=== PATIENT | female | born 1960 | race Caucasian/White ===

== ENCOUNTER 2018-04-24 13:53 | Inpatient (IN) ==
[2018-04-24 16:20] LABS: BASOPHILS # (AUTO) 0.1 X10^3/uL (0.0-0.1); BASOPHILS % (AUTO) 1.1 % (0.2-1.0); EOSINOPHILS # (AUTO) 0.4 x10^3/uL (0.0-0.2); EOSINOPHILS % (AUTO) 3.9 % (0.9-2.9); HEMATOCRIT 37.8 % (36.0-47.0); HEMOGLOBIN 12.8 g/dL (12.0-16.0); LYMPHOCYTES # (AUTO) 3.4 X10^3/uL (1.3-2.9); MEAN CORPUSCULAR HEMOGLOBIN 29.7 pg (27.0-34.0); MEAN CORPUSCULAR HGB CONC 33.8 g/dL (33.0-35.0); MEAN CORPUSCULAR VOLUME 87.8 fL (80.0-100.0); MEAN PLATELET VOLUME 9.3 fL (7.4-11.0); MONOCYTES # (AUTO) 0.8 x10^3/uL (0.3-0.8); MONOCYTES % (AUTO) 8.4 % (0.0-13.0); NEUTROPHILS # (AUTO) 5.3 x10^3/uL (2.2-4.8); NEUTROPHILS % (AUTO) 52.6 % (42.0-75.0); PLATELET COUNT 200 X10^3/uL (150.0-450.0); RED CELL DISTRIBUTION WIDTH 15.3 % (11.6-16.5); WHITE BLOOD COUNT 10.1 X10^3/uL (3.6-10.0)
[2018-04-24] MEDS: FORTAZ or TAZICEF VIAL INJ IVP SCH ×2 (16:24→21:00)
[2018-04-24 16:27] LABS: ALANINE AMINOTRANSFERASE 18 Units/L (12-78); ALBUMIN 3.3 g/dL (3.4-5.0); ALKALINE PHOSPHATASE 71 Units/L (46-116); ASPARTATE AMINO TRANSFERASE 12 Units/L (15-37); BLOOD UREA NITROGEN 15 mg/dL (7-18); CALCIUM 8.8 mg/dL (8.5-10.1); CARBON DIOXIDE 21.9 mmol/L (21-32); CHLORIDE 103 mmol/L (98-107); COR CA(FOR HYPOALB) 9.4 mg/dL (8.5-10.1); CREATININE 1.15 mg/dL (0.55-1.02); SODIUM 137 mmol/L (136-145); eGFR NON BLACK RACES 52 (>60)
[2018-04-24] MEDS: DIFLUCAN 200 MG IV PREMIX* 200 MG/100 ML BAG IV SCH (16:29)
[2018-04-24] MEDS: NS 1000 ML 1,000 ML IV SCH (16:30)
--- NOTE | 2018-04-24 18:53 | DR.UPDATE ---
H&P Update History and Physical Update: WAS SEEN IN THE OFFICE TODAY. SHE WAS ADMITTED FOR TREATMENT OF CELLULITIS TO THE LOWER ABDOMEN/GROIN WELL TINEA CORPORIS AND TINEA CRURIS. A H&P WAS COMPLETED PRIOR TO ADMISSION. SHE WAS STARTED ON IV FORTAZ, IV DIFLUCAN, AND NYSTATIN POWDER. OTHERWISE, NO CHANGES NOTED TO H&P. Changes noted: NO Yes with the following:
[2018-04-24] MEDS ORDERED: PROMETHAZINE HCL 25 MG PO PRN (18:54)
[2018-04-24] MEDS ORDERED: DILTIAZEM HCL PO SCH (19:00)
[2018-04-24] MEDS ORDERED: CITALOPRAM HYDROBROMIDE 20 MG PO SCH (19:00)
[2018-04-24] MEDS ORDERED: ASPIRIN EC 81 MG PO SCH (19:00)
[2018-04-24] MEDS ORDERED: XANAX ONE (19:52)
[2018-04-24] MEDS: ZOCOR TAB 10 MG PO SCH (20:04)
[2018-04-24] MEDS: NEURONTIN CAP 300 MG PO SCH (20:04)
[2018-04-24] MEDS: NexIUM PO SCH (20:04)
[2018-04-24] MEDS: NYSTATIN POWDER TOP SCH (20:06)
[2018-04-24] MEDS: NORCO 10/325 TAB PO PRN (20:07)
[2018-04-24] MEDS ORDERED: PATIENT'S HOME MEDICATION (Esomeprazole Magnesium [Nexium 40mg Cap] 40 MG) PO SCH (21:00)
[2018-04-24] MEDS ORDERED: BENICAR TAB 40 MG PO SCH (21:00)
[2018-04-24] MEDS: XANAX PO SCH (21:01)
[2018-04-24] MEDS: BENADRYL CAP/TAB 25 MG PO PRN (22:53)
[2018-04-24] MEDS: PHENERGAN TAB 25 MG PO PRN (22:53)
[2018-04-25] MEDS: NS 1000 ML 1,000 ML IV SCH ×2 (03:46→18:20)
[2018-04-25] MEDS: NORCO 10/325 TAB PO PRN ×3 (03:46→22:00)
[2018-04-25] MEDS: FORTAZ or TAZICEF VIAL INJ IVP SCH ×3 (05:10→21:38)
[2018-04-25] MEDS: XANAX PO SCH ×3 (05:10→21:37)
[2018-04-25 06:19] LABS: BASOPHILS # (AUTO) 0.1 X10^3/uL (0.0-0.1); EOSINOPHILS # (AUTO) 0.5 x10^3/uL (0.0-0.2); EOSINOPHILS % (AUTO) 5.4 % (0.9-2.9); HEMATOCRIT 34.3 % (36.0-47.0); HEMOGLOBIN 11.7 g/dL (12.0-16.0); LYMPHOCYTES # (AUTO) 2.9 X10^3/uL (1.3-2.9); LYMPHOCYTES % (AUTO) 34.1 % (21.0-51.0); MEAN CORPUSCULAR HEMOGLOBIN 29.7 pg (27.0-34.0); MEAN CORPUSCULAR HGB CONC 34.1 g/dL (33.0-35.0); MEAN CORPUSCULAR VOLUME 87.2 fL (80.0-100.0); MEAN PLATELET VOLUME 9.7 fL (7.4-11.0); MONOCYTES # (AUTO) 0.6 x10^3/uL (0.3-0.8); MONOCYTES % (AUTO) 7.4 % (0.0-13.0); NEUTROPHILS # (AUTO) 4.4 x10^3/uL (2.2-4.8); NEUTROPHILS % (AUTO) 52.1 % (42.0-75.0); PLATELET COUNT 190 X10^3/uL (150.0-450.0); RED BLOOD COUNT 3.94 X10^6/uL (3.5-5.4); RED CELL DISTRIBUTION WIDTH 14.9 % (11.6-16.5); WHITE BLOOD COUNT 8.5 X10^3/uL (3.6-10.0)
[2018-04-25 06:36] LABS: ALANINE AMINOTRANSFERASE 15 Units/L (12-78); ALBUMIN 2.8 g/dL (3.4-5.0); ALKALINE PHOSPHATASE 70 Units/L (46-116); ASPARTATE AMINO TRANSFERASE 12 Units/L (15-37); BLOOD UREA NITROGEN 15 mg/dL (7-18); CALCIUM 8.3 mg/dL (8.5-10.1); CARBON DIOXIDE 23.6 mmol/L (21-32); CHLORIDE 104 mmol/L (98-107); COR CA(FOR HYPOALB) 9.3 mg/dL (8.5-10.1); COR NA(FOR HYPERGLY) 138 mmol/L (136-145); CREATININE 0.91 mg/dL (0.55-1.02); SODIUM 137 mmol/L (136-145); TOTAL PROTEIN 6.2 g/dL (6.4-8.2); eGFR NON BLACK RACES > 60 (>60)
[2018-04-25 06:50] VITALS: BMI 39.6
[2018-04-25] MEDS: DIFLUCAN 200 MG IV PREMIX* 200 MG/100 ML BAG IV SCH (09:28)
[2018-04-25] MEDS: NEURONTIN CAP 300 MG PO SCH ×4 (09:29→21:38)
[2018-04-25] MEDS: NexIUM PO SCH ×2 (09:29→21:38)
[2018-04-25] MEDS: ASPIRIN EC 81 MG PO SCH (09:29)
[2018-04-25] MEDS: CELEXA PO SCH (09:30)
[2018-04-25] MEDS: NYSTATIN POWDER TOP SCH ×2 (09:30→21:38)
[2018-04-25] MEDS: CARDIZEM SR 120 MG PO SCH (09:32)
[2018-04-25] MEDS: BENADRYL CAP/TAB 25 MG PO PRN ×2 (09:43→21:46)
[2018-04-25] MEDS: ZOCOR TAB 10 MG PO SCH (21:38)
[2018-04-26] MEDS: FORTAZ or TAZICEF VIAL INJ IVP SCH ×3 (05:52→22:02)
[2018-04-26] MEDS: NS 1000 ML 1,000 ML IV SCH ×3 (05:53→22:02)
[2018-04-26] MEDS: XANAX PO SCH ×3 (05:53→22:03)
[2018-04-26 06:20] LABS: BASOPHILS # (AUTO) 0.1 X10^3/uL (0.0-0.1); BASOPHILS % (AUTO) 1.2 % (0.2-1.0); EOSINOPHILS # (AUTO) 0.7 x10^3/uL (0.0-0.2); HEMATOCRIT 35.4 % (36.0-47.0); LYMPHOCYTES # (AUTO) 4.1 X10^3/uL (1.3-2.9); LYMPHOCYTES % (AUTO) 39.9 % (21.0-51.0); MEAN CORPUSCULAR HEMOGLOBIN 29.9 pg (27.0-34.0); MEAN CORPUSCULAR HGB CONC 33.9 g/dL (33.0-35.0); MEAN CORPUSCULAR VOLUME 88.2 fL (80.0-100.0); MEAN PLATELET VOLUME 9.2 fL (7.4-11.0); MONOCYTES # (AUTO) 0.7 x10^3/uL (0.3-0.8); MONOCYTES % (AUTO) 6.9 % (0.0-13.0); NEUTROPHILS # (AUTO) 4.6 x10^3/uL (2.2-4.8); PLATELET COUNT 203 X10^3/uL (150.0-450.0); RED BLOOD COUNT 4.01 X10^6/uL (3.5-5.4); RED CELL DISTRIBUTION WIDTH 14.8 % (11.6-16.5); WHITE BLOOD COUNT 10.3 X10^3/uL (3.6-10.0)
[2018-04-26 06:33] LABS: ALANINE AMINOTRANSFERASE 17 Units/L (12-78); ALBUMIN 2.9 g/dL (3.4-5.0); ALKALINE PHOSPHATASE 81 Units/L (46-116); ASPARTATE AMINO TRANSFERASE 13 Units/L (15-37); BLOOD UREA NITROGEN 11 mg/dL (7-18); CALCIUM 8.3 mg/dL (8.5-10.1); CARBON DIOXIDE 25.9 mmol/L (21-32); CHLORIDE 105 mmol/L (98-107); COR CA(FOR HYPOALB) 9.2 mg/dL (8.5-10.1); CREATININE 0.83 mg/dL (0.55-1.02); SODIUM 137 mmol/L (136-145); TOTAL PROTEIN 6.5 g/dL (6.4-8.2); eGFR NON BLACK RACES > 60 (>60)
[2018-04-26] MEDS: DIFLUCAN 200 MG IV PREMIX* 200 MG/100 ML BAG IV SCH (08:05)
[2018-04-26] MEDS: CELEXA PO SCH (08:05)
[2018-04-26] MEDS: CARDIZEM SR 120 MG PO SCH (08:05)
[2018-04-26] MEDS: ASPIRIN EC 81 MG PO SCH (08:05)
[2018-04-26] MEDS: NEURONTIN CAP 300 MG PO SCH ×4 (08:05→20:30)
[2018-04-26] MEDS: NexIUM PO SCH ×2 (08:05→20:30)
[2018-04-26] MEDS: NYSTATIN POWDER TOP SCH ×2 (08:06→20:27)
[2018-04-26] MEDS: BENADRYL CAP/TAB 25 MG PO PRN ×2 (08:10→20:43)
[2018-04-26] MEDS ORDERED: PHARMACY CONSULT - VANCOMYCIN XX SCH (09:00)
--- NOTE | 2018-04-26 10:06 | PCM.PROG ---
Progress Note - Progress Note for Day of Date of Exam: 04/25/18 - Subjective Subjective: WAS ADMITTED FOR CELLULITIS OF THE LOWER ABDOMEN WELL TINEA CORPORIS AND TINEA CRURIS TO THE ABDOMINAL SKIN FOLDS, GROIN, UPPER THIGHS, AND UNDER BREAST. TODAY, SHE IS ALERT AND ORIENTED, LYING IN BED ON MORNING ROUNDS. SHE CONTINUES WITH PAIN AND ITCHING TO AREA. SHE REPORTS A BURING SENSATION. THERE IS SEROUS DRAINAGE NOTED IN ABOVE MENTIONED AREAS WITH A FOUL ODOR. HER VITALS THIS MORNING ARE 98.2-71-20-92%-89/50. LABS WERE OBTAINED. ABNORMAL LAB VALUES INCLUDE THE FOLLOWING: HGB 11.7, HCT 34.3, GLUCOSE 127, CALCIUM 8.3, AST 12, TOTAL PROTEIN 6.2, ALBUMIN 2.8. WOUND CULTURES AND BLOOD CULTURES ARE PENDING. SHE IS CURRENTLY RECEIVING DIFLUCAN 200MG IV DAILY AND FORTAZ 1GM IV Q8H. WE WILL CONTINUE WITH CURRENT PLAN OF CARE AND RESUME HOME MEDICATIONS TODAY. OTHERWISE, WE WILL FOLLOW UP WITH AM LABS AND CONTINUE TO MONITOR PATIENT. - Past Medical Family Social History Past Med/Fam/Surg Hx: No changes since H&P Allergies: Allergies chlordiazepoxide Allergy (Verified 04/24/18 19:34) ciprofloxacin [From Cipro] Allergy (Verified 04/24/18 19:34) dicyclomine [From Bentyl] Allergy (Verified 04/24/18 19:34) pantoprazole [From Protonix] Allergy (Verified 04/24/18 19:34) Penicillins Allergy (Verified 04/24/18 19:34) ranitidine Allergy (Verified 04/24/18 19:34) tramadol Allergy (Verified 04/24/18 19:34) - Review of Systems ROS: No change since H&P - Vital Signs and I&O's Vital Signs: Temperature 98.0 F Pulse Rate [Right Brachial] 60 Respiratory Rate 18 Blood Pressure [Left Arm] 95/51 Blood Pressure [Right Arm] 119/59 Blood Pressure 123/83 O2 Sat by Pulse Oximetry 96 Intake and Output: Intake & Output 04/23/18 04/24/18 04/25/18 04/26/18 11:59 11:59 11:59 11:59 Intake Total 1430 / 1430 960 / 960 Balance 1430 / 1430 960 / 960 - Physical Exam Oriented: Normal Eyes: Normal Ear: Normal Nose: Normal Throat: Normal Respiratory: Generalized, Diminished Cardiovascular: Normal : Normal Auscultation: Bowel Sounds: Normal Palpation: Normal Tenderness: Normal Skin: Rash, Red, Tender, Wound Musculoskeletal: Normal Psychiatric: Normal Mood Description: Calm Affect: Normal Speech Pattern: Clear, Appropriate - Laboratory and Diagnostics Result Diagrams: 04/26/18 06:03 04/26/18 06:03 Labs: 04/24/18 16:18 Abdomen Gram Stain - Final 04/24/18 16:18 Abdomen Wound Culture - Preliminary Laboratory WBC 10.3 X10^3/uL (3.6-10.0) H 04/26/18 06:03 RBC 4.01 X10^6/uL (3.5-5.4) 04/26/18 06:03 Hgb 12.0 g/dL (12.0-16.0) 04/26/18 06:03 Hct 35.4 % (36.0-47.0) L 04/26/18 06:03 MCV 88.2 fL (80.0-100.0) 04/26/18 06:03 MCH 29.9 pg (27.0-34.0) 04/26/18 06:03 MCHC 33.9 g/dL (33.0-35.0) 04/26/18 06:03 RDW 14.8 % (11.6-16.5) 04/26/18 06:03 Plt Count 203 X10^3/uL (150.0-450.0) 04/26/18 06:03 MPV 9.2 fL (7.4-11.0) 04/26/18 06:03 Neut % (Auto) 45.0 % (42.0-75.0) 04/26/18 06:03 Lymph % (Auto) 39.9 % (21.0-51.0) 04/26/18 06:03 [place] % (Auto) 6.9 % (0.0-13.0) 04/26/18 06:03 Eos % (Auto) 7.0 % (0.9-2.9) H 04/26/18 06:03 Baso % (Auto) 1.2 % (0.2-1.0) H 04/26/18 06:03 Neut # (Auto) 4.6 x10^3/uL (2.2-4.8) 04/26/18 06:03 Lymph # (Auto) 4.1 X10^3/uL (1.3-2.9) H 04/26/18 06:03 [place] # (Auto) 0.7 x10^3/uL (0.3-0.8) 04/26/18 06:03 Eos # (Auto) 0.7 x10^3/uL (0.0-0.2) H 04/26/18 06:03 Baso # (Auto) 0.1 X10^3/uL (0.0-0.1) 04/26/18 06:03 Absolute Nucleated RBC 0.1 /100WBC 04/26/18 06:03 Sodium 137 mmol/L (136-145) 04/26/18 06:03 Corrected Sodium TNP 04/26/18 06:03 Potassium 4.0 mmol/L (3.5-5.1) 04/26/18 06:03 Chloride 105 mmol/L (98-107) 04/26/18 06:03 Carbon Dioxide 25.9 mmol/L (21-32) 04/26/18 06:03 BUN 11 mg/dL (7-18) 04/26/18 06:03 Creatinine 0.83 mg/dL (0.55-1.02) 04/26/18 06:03 Est GFR (MDRD) Af Amer > 60 (>60) 04/26/18 06:03 Est GFR (MDRD) Non-Af > 60 (>60) 04/26/18 06:03 Glucose 108 mg/dL (65-99) H 04/26/18 06:03 Calcium 8.3 mg/dL (8.5-10.1) L 04/26/18 06:03 Corrected Calcium 9.2 mg/dL (8.5-10.1) 04/26/18 06:03 Total Bilirubin 0.20 mg/dL (0.2-1.0) 04/26/18 06:03 AST 13 Units/L (15-37) L 04/26/18 06:03 ALT 17 Units/L (12-78) 04/26/18 06:03 Alkaline Phosphatase 81 Units/L (46-116) 04/26/18 06:03 Total Protein 6.5 g/dL (6.4-8.2) 04/26/18 06:03 Albumin 2.9 g/dL (3.4-5.0) L 04/26/18 06:03 Globulin 3.6 g/dL (2.5-4.5) 04/26/18 06:03 Albumin/Globulin Ratio 0.8 Ratio (1.1-2.1) L 04/26/18 06:03 - Plan (1) Abdominal wall cellulitis Status: Acute Plan: CONTINUE IV FORTAZ, WOUND CULTURES, BLOOD CULTURES, CONTINUE TO MONITOR (2) Tinea corporis Status: Acute Plan: IV DIFLUCAN, NYSTATIN POWDER, CONTINUE TO MONITOR (3) Tinea cruris Status: Acute Plan: IV DIFLUCAN, NYSTATIN POWDER, CONTINUE TO MONITOR
[2018-04-26] MEDS: VANCOMYCIN 1 GRAM PREMIX (ADDVANTAGE) 250 ML IV SCH ×2 (11:06→20:43)
[2018-04-26] MEDS: NORCO 10/325 TAB PO PRN ×2 (11:18→23:40)
[2018-04-26] MEDS: ZOCOR TAB 10 MG PO SCH (20:43)
[2018-04-27] MEDS: NS 1000 ML 1,000 ML IV SCH ×4 (02:07→23:20)
[2018-04-27] MEDS: FORTAZ or TAZICEF VIAL INJ IVP SCH ×3 (05:50→21:03)
[2018-04-27] MEDS: XANAX PO SCH ×3 (06:29→21:10)
[2018-04-27 06:36] LABS: BASOPHILS # (AUTO) 0.1 X10^3/uL (0.0-0.1); BASOPHILS % (AUTO) 0.8 % (0.2-1.0); EOSINOPHILS # (AUTO) 0.7 x10^3/uL (0.0-0.2); EOSINOPHILS % (AUTO) 9.4 % (0.9-2.9); HEMATOCRIT 32.4 % (36.0-47.0); HEMOGLOBIN 10.9 g/dL (12.0-16.0); LYMPHOCYTES # (AUTO) 2.7 X10^3/uL (1.3-2.9); LYMPHOCYTES % (AUTO) 37.7 % (21.0-51.0); MEAN CORPUSCULAR HEMOGLOBIN 29.7 pg (27.0-34.0); MEAN CORPUSCULAR HGB CONC 33.8 g/dL (33.0-35.0); MEAN CORPUSCULAR VOLUME 88.1 fL (80.0-100.0); MEAN PLATELET VOLUME 9.4 fL (7.4-11.0); MONOCYTES # (AUTO) 0.6 x10^3/uL (0.3-0.8); MONOCYTES % (AUTO) 7.7 % (0.0-13.0); NEUTROPHILS # (AUTO) 3.2 x10^3/uL (2.2-4.8); NEUTROPHILS % (AUTO) 44.4 % (42.0-75.0); PLATELET COUNT 191 X10^3/uL (150.0-450.0); RED BLOOD COUNT 3.68 X10^6/uL (3.5-5.4); RED CELL DISTRIBUTION WIDTH 14.8 % (11.6-16.5); WHITE BLOOD COUNT 7.2 X10^3/uL (3.6-10.0)
[2018-04-27 06:41] LABS: ALANINE AMINOTRANSFERASE 16 Units/L (12-78); ALBUMIN 2.5 g/dL (3.4-5.0); ALKALINE PHOSPHATASE 86 Units/L (46-116); ASPARTATE AMINO TRANSFERASE 13 Units/L (15-37); BLOOD UREA NITROGEN 9 mg/dL (7-18); CALCIUM 7.7 mg/dL (8.5-10.1); CARBON DIOXIDE 24.9 mmol/L (21-32); CHLORIDE 107 mmol/L (98-107); COR CA(FOR HYPOALB) 8.9 mg/dL (8.5-10.1); CREATININE 0.83 mg/dL (0.55-1.02); SODIUM 141 mmol/L (136-145); TOTAL PROTEIN 5.9 g/dL (6.4-8.2); eGFR NON BLACK RACES > 60 (>60)
[2018-04-27] MEDS: NORCO 10/325 TAB PO PRN ×2 (08:48→22:30)
[2018-04-27] MEDS: NexIUM PO SCH ×2 (08:48→21:03)
[2018-04-27] MEDS: DIFLUCAN 200 MG IV PREMIX* 200 MG/100 ML BAG IV SCH (08:48)
[2018-04-27] MEDS: VANCOMYCIN 1 GRAM PREMIX (ADDVANTAGE) 250 ML IV SCH ×2 (08:48→21:01)
[2018-04-27] MEDS: NEURONTIN CAP 300 MG PO SCH ×4 (08:48→21:03)
[2018-04-27] MEDS: NYSTATIN POWDER TOP SCH ×2 (08:48→21:03)
[2018-04-27] MEDS: ASPIRIN EC 81 MG PO SCH (08:49)
[2018-04-27] MEDS: CARDIZEM SR 120 MG PO SCH (08:49)
[2018-04-27] MEDS: BENADRYL CAP/TAB 25 MG PO PRN ×2 (08:49→22:30)
[2018-04-27] MEDS: CELEXA PO SCH (08:49)
--- NOTE | 2018-04-27 09:52 | PCM.PROG ---
Progress Note - Progress Note for Day of Date of Exam: 04/26/18 - Subjective Subjective: WAS ADMITTED FOR CELLULITIS OF THE LOWER ABDOMEN WELL TINEA CORPORIS AND TINEA CRURIS TO THE ABDOMINAL SKIN FOLDS, GROIN, UPPER THIGHS, AND UNDER BREAST. TODAY, SHE IS ALERT AND ORIENTED, LYING IN BED ON MORNING ROUNDS. SHE CONTINUES WITH PAIN TO ALL AREAS, BUT MOSTLY TO ABDOMEN. THERE IS SEROUS DRAINAGE NOTED IN ABOVE MENTIONED AREAS WITH A FOUL ODOR. HER VITALS THIS MORNING ARE 98.0-60-18-96%-95/51. LABS WERE OBTAINED. ABNORMAL LAB VALUES INCLUDE THE FOLLOWING: WBC 10.3, HCT 35.4, GLUCOSE 108, CALCIUM 8.3, AST 13, ALBUMIN 2.9. BLOOD CULTURES ARE PENDING. WOUND CULTURES OF ABDOMEN REPORT GROWTH GRAM POSITIVE COCCI. SHE IS CURRENTLY RECEIVING DIFLUCAN 200MG IV DAILY AND FORTAZ 1GM IV Q8H. WE WILL ADD VANCOMYCIN 1GM IV Q12H TODAY. OTHERWISE, WE WILL CONTINUE WITH CURRENT PLAN OF CARE TODAY. WE WILL FOLLOW UP WITH AM LABS AND CONTINUE TO MONITOR PATIENT. - Past Medical Family Social History Past Med/Fam/Surg Hx: No changes since H&P Allergies: Allergies chlordiazepoxide Allergy (Verified 04/24/18 19:34) ciprofloxacin [From Cipro] Allergy (Verified 04/24/18 19:34) dicyclomine [From Bentyl] Allergy (Verified 04/24/18 19:34) pantoprazole [From Protonix] Allergy (Verified 04/24/18 19:34) Penicillins Allergy (Verified 04/24/18 19:34) ranitidine Allergy (Verified 04/24/18 19:34) tramadol Allergy (Verified 04/24/18 19:34) - Review of Systems ROS: No change since H&P - Vital Signs and I&O's Vital Signs: Temperature 98.3 F Pulse Rate [Right Brachial] 71 Respiratory Rate 20 Blood Pressure [Left Arm] 132/76 Blood Pressure [Right Arm] 119/59 Blood Pressure 123/83 O2 Sat by Pulse Oximetry 96 Intake and Output: Intake & Output 04/24/18 04/25/18 04/26/18 04/27/18 11:59 11:59 11:59 11:59 Intake Total 1430 / 1430 960 / 960 960 / 960 Balance 1430 / 1430 960 / 960 960 / 960 - Physical Exam Oriented: Normal Eyes: Normal Ear: Normal Nose: Normal Throat: Normal Respiratory: Generalized, Diminished Cardiovascular: Normal : Normal Auscultation: Bowel Sounds: Normal Palpation: Normal Tenderness: Normal Skin: Rash, Red, Tender, Wound Musculoskeletal: Normal Psychiatric: Normal Mood Description: Calm Affect: Normal Speech Pattern: Clear, Appropriate - Laboratory and Diagnostics Result Diagrams: 04/27/18 05:38 04/27/18 05:38 Labs: 04/24/18 16:18 Abdomen Gram Stain - Final 04/24/18 16:18 Abdomen Wound Culture - Final Methicillin Resis Staph Aureus 04/24/18 15:56 Blood Blood Culture - Preliminary 04/24/18 16:03 Blood Blood Culture - Preliminary Laboratory WBC 7.2 X10^3/uL (3.6-10.0) 04/27/18 05:38 RBC 3.68 X10^6/uL (3.5-5.4) 04/27/18 05:38 Hgb 10.9 g/dL (12.0-16.0) L 04/27/18 05:38 Hct 32.4 % (36.0-47.0) L 04/27/18 05:38 MCV 88.1 fL (80.0-100.0) 04/27/18 05:38 MCH 29.7 pg (27.0-34.0) 04/27/18 05:38 MCHC 33.8 g/dL (33.0-35.0) 04/27/18 05:38 RDW 14.8 % (11.6-16.5) 04/27/18 05:38 Plt Count 191 X10^3/uL (150.0-450.0) 04/27/18 05:38 MPV 9.4 fL (7.4-11.0) 04/27/18 05:38 Neut % (Auto) 44.4 % (42.0-75.0) 04/27/18 05:38 Lymph % (Auto) 37.7 % (21.0-51.0) 04/27/18 05:38 [place] % (Auto) 7.7 % (0.0-13.0) 04/27/18 05:38 Eos % (Auto) 9.4 % (0.9-2.9) H 04/27/18 05:38 Baso % (Auto) 0.8 % (0.2-1.0) 04/27/18 05:38 Neut # (Auto) 3.2 x10^3/uL (2.2-4.8) 04/27/18 05:38 Lymph # (Auto) 2.7 X10^3/uL (1.3-2.9) 04/27/18 05:38 [place] # (Auto) 0.6 x10^3/uL (0.3-0.8) 04/27/18 05:38 Eos # (Auto) 0.7 x10^3/uL (0.0-0.2) H 04/27/18 05:38 Baso # (Auto) 0.1 X10^3/uL (0.0-0.1) 04/27/18 05:38 Absolute Nucleated RBC 0.0 /100WBC 04/27/18 05:38 Sodium 141 mmol/L (136-145) 04/27/18 05:38 Corrected Sodium TNP 04/27/18 05:38 Potassium 3.9 mmol/L (3.5-5.1) 04/27/18 05:38 Chloride 107 mmol/L (98-107) 04/27/18 05:38 Carbon Dioxide 24.9 mmol/L (21-32) 04/27/18 05:38 BUN 9 mg/dL (7-18) 04/27/18 05:38 Creatinine 0.83 mg/dL (0.55-1.02) 04/27/18 05:38 Est GFR (MDRD) Af Amer > 60 (>60) 04/27/18 05:38 Est GFR (MDRD) Non-Af > 60 (>60) 04/27/18 05:38 Glucose 109 mg/dL (65-99) H 04/27/18 05:38 Calcium 7.7 mg/dL (8.5-10.1) L 04/27/18 05:38 Corrected Calcium 8.9 mg/dL (8.5-10.1) 04/27/18 05:38 Total Bilirubin 0.20 mg/dL (0.2-1.0) 04/27/18 05:38 AST 13 Units/L (15-37) L 04/27/18 05:38 ALT 16 Units/L (12-78) 04/27/18 05:38 Alkaline Phosphatase 86 Units/L (46-116) 04/27/18 05:38 Total Protein 5.9 g/dL (6.4-8.2) L 04/27/18 05:38 Albumin 2.5 g/dL (3.4-5.0) L 04/27/18 05:38 Globulin 3.4 g/dL (2.5-4.5) 04/27/18 05:38 Albumin/Globulin Ratio 0.7 Ratio (1.1-2.1) L 04/27/18 05:38 - Plan (1) Abdominal wall cellulitis Status: Acute Plan: VANCOMYCIN 1GM IV Q12H, CONTINUE IV FORTAZ, WOUND CULTURES, BLOOD CULTURES, CONTINUE TO MONITOR (2) Tinea corporis Status: Acute Plan: IV DIFLUCAN, NYSTATIN POWDER, CONTINUE TO MONITOR (3) Tinea cruris Status: Acute Plan: IV DIFLUCAN, NYSTATIN POWDER, CONTINUE TO MONITOR
[2018-04-27] MEDS ORDERED: CONSULT PHARMACY - GENTAMICIN XX SCH (12:00)
[2018-04-27] MEDS: GENTAMICIN TOPICAL CRM TOP SCH ×2 (12:25→21:03)
[2018-04-27] MEDS: COLACE CAP 100 MG PO SCH ×2 (13:29→21:03)
[2018-04-27] MEDS: MILK OF MAGNESIA PO SCH ×2 (13:29→21:03)
[2018-04-27] MEDS ORDERED: PHARMACY COMMENT IV NR (20:30)
[2018-04-27 20:41] LABS: CREATININE 0.83 mg/dL (0.55-1.02); VANCOMYCIN,TROUGH 14.1 ug/mL (15-20)
[2018-04-27] MEDS: ZOCOR TAB 10 MG PO SCH (21:10)
[2018-04-27] MEDS: PHENERGAN TAB 25 MG PO PRN (22:30)
[2018-04-28] MEDS: XANAX PO SCH ×3 (06:12→21:13)
[2018-04-28] MEDS: FORTAZ or TAZICEF VIAL INJ IVP SCH ×3 (06:12→21:12)
[2018-04-28 06:38] LABS: BASOPHILS # (AUTO) 0.1 X10^3/uL (0.0-0.1); BASOPHILS % (AUTO) 1.1 % (0.2-1.0); EOSINOPHILS # (AUTO) 0.8 x10^3/uL (0.0-0.2); EOSINOPHILS % (AUTO) 10.4 % (0.9-2.9); HEMATOCRIT 32.1 % (36.0-47.0); LYMPHOCYTES # (AUTO) 2.7 X10^3/uL (1.3-2.9); LYMPHOCYTES % (AUTO) 35.8 % (21.0-51.0); MEAN CORPUSCULAR HEMOGLOBIN 30.1 pg (27.0-34.0); MEAN CORPUSCULAR HGB CONC 34.4 g/dL (33.0-35.0); MEAN CORPUSCULAR VOLUME 87.6 fL (80.0-100.0); MEAN PLATELET VOLUME 9.3 fL (7.4-11.0); MONOCYTES # (AUTO) 0.5 x10^3/uL (0.3-0.8); MONOCYTES % (AUTO) 7.2 % (0.0-13.0); NEUTROPHILS # (AUTO) 3.4 x10^3/uL (2.2-4.8); NEUTROPHILS % (AUTO) 45.5 % (42.0-75.0); PLATELET COUNT 214 X10^3/uL (150.0-450.0); RED BLOOD COUNT 3.66 X10^6/uL (3.5-5.4); RED CELL DISTRIBUTION WIDTH 14.7 % (11.6-16.5); WHITE BLOOD COUNT 7.5 X10^3/uL (3.6-10.0)
[2018-04-28 07:07] LABS: ALANINE AMINOTRANSFERASE 17 Units/L (12-78); ALBUMIN 2.6 g/dL (3.4-5.0); ALKALINE PHOSPHATASE 86 Units/L (46-116); ASPARTATE AMINO TRANSFERASE 14 Units/L (15-37); BLOOD UREA NITROGEN 8 mg/dL (7-18); CALCIUM 7.7 mg/dL (8.5-10.1); CARBON DIOXIDE 28.1 mmol/L (21-32); CHLORIDE 107 mmol/L (98-107); COR CA(FOR HYPOALB) 8.8 mg/dL (8.5-10.1); CREATININE 0.74 mg/dL (0.55-1.02); SODIUM 141 mmol/L (136-145); TOTAL PROTEIN 6.1 g/dL (6.4-8.2); eGFR NON BLACK RACES > 60 (>60)
[2018-04-28] MEDS: VANCOMYCIN 1 GRAM PREMIX (ADDVANTAGE) 250 ML IV SCH ×2 (09:39→20:29)
[2018-04-28] MEDS: NEURONTIN CAP 300 MG PO SCH ×4 (09:40→20:26)
[2018-04-28] MEDS: CARDIZEM SR 120 MG PO SCH (09:40)
[2018-04-28] MEDS: ASPIRIN EC 81 MG PO SCH (09:40)
[2018-04-28] MEDS: MILK OF MAGNESIA PO SCH (09:40)
[2018-04-28] MEDS: CELEXA PO SCH (09:40)
[2018-04-28] MEDS: NYSTATIN POWDER TOP SCH ×2 (09:40→20:30)
[2018-04-28] MEDS: NexIUM PO SCH ×2 (09:40→20:26)
[2018-04-28] MEDS: GENTAMICIN TOPICAL CRM TOP SCH ×2 (09:41→20:28)
[2018-04-28] MEDS ORDERED: NS 250 ML IV 250 ML IV ONE (09:45)
[2018-04-28] MEDS: DIFLUCAN PO SCH (11:53)
[2018-04-28] MEDS: NS 1000 ML 1,000 ML IV SCH (12:44)
[2018-04-28] MEDS ORDERED: MILK OF MAGNESIA PO PRN (18:52)
[2018-04-28] MEDS ORDERED: PROCTOFOAM HC EXT PRN (18:53)
[2018-04-28] MEDS: NORCO 10/325 TAB PO PRN (20:27)
[2018-04-28] MEDS: ZOCOR TAB 10 MG PO SCH (20:27)
[2018-04-28] MEDS: COLACE CAP 100 MG PO SCH (20:29)
[2018-04-28] MEDS ORDERED: PREPARATION H OINT RECTAL PRN (21:12)
[2018-04-28] MEDS: PHENERGAN TAB 25 MG PO PRN (21:12)
[2018-04-28] MEDS: BENADRYL CAP/TAB 25 MG PO PRN (21:15)
[2018-04-29] MEDS: NS 1000 ML 1,000 ML IV SCH ×2 (03:15→07:00)
[2018-04-29] MEDS: XANAX PO SCH ×3 (05:40→22:02)
[2018-04-29] MEDS: FORTAZ or TAZICEF VIAL INJ IVP SCH ×3 (05:40→22:00)
[2018-04-29 06:30] LABS: BASOPHILS % (AUTO) 0.8 % (0.2-1.0); EOSINOPHILS # (AUTO) 0.6 x10^3/uL (0.0-0.2); EOSINOPHILS % (AUTO) 9.2 % (0.9-2.9); HEMATOCRIT 31.3 % (36.0-47.0); HEMOGLOBIN 10.6 g/dL (12.0-16.0); LYMPHOCYTES # (AUTO) 2.2 X10^3/uL (1.3-2.9); LYMPHOCYTES % (AUTO) 35.9 % (21.0-51.0); MEAN CORPUSCULAR HEMOGLOBIN 30.1 pg (27.0-34.0); MEAN CORPUSCULAR VOLUME 88.3 fL (80.0-100.0); MEAN PLATELET VOLUME 8.6 fL (7.4-11.0); MONOCYTES # (AUTO) 0.4 x10^3/uL (0.3-0.8); NEUTROPHILS # (AUTO) 2.9 x10^3/uL (2.2-4.8); NEUTROPHILS % (AUTO) 48.1 % (42.0-75.0); PLATELET COUNT 211 X10^3/uL (150.0-450.0); RED BLOOD COUNT 3.54 X10^6/uL (3.5-5.4); RED CELL DISTRIBUTION WIDTH 14.7 % (11.6-16.5); WHITE BLOOD COUNT 6.1 X10^3/uL (3.6-10.0)
[2018-04-29 06:33] LABS: ALANINE AMINOTRANSFERASE 16 Units/L (12-78); ALBUMIN 2.5 g/dL (3.4-5.0); ALKALINE PHOSPHATASE 62 Units/L (46-116); ASPARTATE AMINO TRANSFERASE 14 Units/L (15-37); BLOOD UREA NITROGEN 7 mg/dL (7-18); CALCIUM 7.8 mg/dL (8.5-10.1); CARBON DIOXIDE 29.1 mmol/L (21-32); CHLORIDE 107 mmol/L (98-107); CREATININE 0.81 mg/dL (0.55-1.02); SODIUM 142 mmol/L (136-145); TOTAL PROTEIN 5.9 g/dL (6.4-8.2); eGFR NON BLACK RACES > 60 (>60)
[2018-04-29 08:06] LABS: CREATININE 0.74 mg/dL (0.55-1.02); VANCOMYCIN,TROUGH 13.9 ug/mL (15-20)
[2018-04-29] MEDS: NYSTATIN POWDER TOP SCH ×2 (08:29→22:03)
[2018-04-29] MEDS: GENTAMICIN TOPICAL CRM TOP SCH ×2 (08:29→22:03)
[2018-04-29] MEDS: CARDIZEM SR 120 MG PO SCH (08:29)
[2018-04-29] MEDS: DIFLUCAN PO SCH (08:29)
[2018-04-29] MEDS: CELEXA PO SCH (08:30)
[2018-04-29] MEDS: ASPIRIN EC 81 MG PO SCH (08:30)
[2018-04-29] MEDS: NEURONTIN CAP 300 MG PO SCH ×4 (08:30→22:00)
[2018-04-29] MEDS: NexIUM PO SCH ×2 (08:30→22:02)
[2018-04-29] MEDS: VANCOMYCIN 1 GRAM PREMIX (ADDVANTAGE) 250 ML IV SCH ×2 (08:31→22:02)
[2018-04-29] MEDS: BENADRYL CAP/TAB 25 MG PO PRN ×2 (08:38→22:01)
[2018-04-29] MEDS: NORCO 10/325 TAB PO PRN ×2 (08:38→22:19)
--- NOTE | 2018-04-29 09:18 | RAD ---
Examination: Portable AP chest History: SOB Comparison 12/17/2015 Findings: Continued normal heart size. Mild central pulmonary vascular congestion without evidence fo r pneumonia, pleural fluid or rocio pulmonary edema. Impression: Interval appearance of pulmonary vascular distention since prior study. No change otherwi se. Reported By:
--- NOTE | 2018-04-29 20:34 | PCM.PROG ---
Progress Note - Progress Note for Day of Date of Exam: 04/27/18 - Subjective Subjective: WAS ADMITTED FOR CELLULITIS OF THE LOWER ABDOMEN WELL TINEA CORPORIS AND TINEA CRURIS TO THE ABDOMINAL SKIN FOLDS, GROIN, UPPER THIGHS, AND UNDER BREAST. TODAY, SHE IS ALERT AND ORIENTED, LYING IN BED ON MORNING ROUNDS. SHE CONTINUES WITH PAIN TO ABDOMEN. THERE IS SEROUS DRAINAGE NOTED IN ABOVE MENTIONED AREAS WITH A FOUL ODOR. HER VITALS THIS MORNING ARE 97.6-70-18-93%-115/70. LABS WERE OBTAINED. ABNORMAL LAB VALUES INCLUDE THE FOLLOWING: HGB 10.9, HCT 32.4, GLUCOSE 109, CALCIUM 7.7, AST 13, TOTAL PROTEIN 5.9, ALBUMIN 2.5. WOUND CULTURES OF ABDOMEN REPORT GROWTH OF MRSA. WE WILL CONTINUE WITH CURRENT PLAN OF CARE TODAY. OTHERWISE, WE WILL FOLLOW UP WITH AM LABS AND CONTINUE TO MONITOR PATIENT. - Past Medical Family Social History Past Med/Fam/Surg Hx: No changes since H&P Allergies: Allergies chlordiazepoxide Allergy (Verified 04/24/18 19:34) ciprofloxacin [From Cipro] Allergy (Verified 04/24/18 19:34) dicyclomine [From Bentyl] Allergy (Verified 04/24/18 19:34) pantoprazole [From Protonix] Allergy (Verified 04/24/18 19:34) Penicillins Allergy (Verified 04/24/18 19:34) ranitidine Allergy (Verified 04/24/18 19:34) tramadol Allergy (Verified 04/24/18 19:34) - Review of Systems ROS: No change since H&P - Vital Signs and I&O's Vital Signs: Temperature 98.0 F Pulse Rate [Right Brachial] 62 Respiratory Rate 18 Blood Pressure [Left Arm] 116/64 Blood Pressure [Right Arm] 119/59 Blood Pressure 123/83 O2 Sat by Pulse Oximetry 92 Intake and Output: Intake & Output 04/27/18 04/28/18 04/29/18 04/30/18 11:59 11:59 11:59 11:59 Intake Total 960 / 960 1670 / 1670 2540 / 2540 950 / 950 Balance 960 / 960 1670 / 1670 2540 / 2540 950 / 950 - Physical Exam Oriented: Normal Eyes: Normal Ear: Normal Nose: Normal Throat: Normal Respiratory: Generalized, Diminished Cardiovascular: Normal : Normal Auscultation: Bowel Sounds: Normal Palpation: Normal Tenderness: Normal Skin: Rash, Red, Tender, Wound Musculoskeletal: Normal Psychiatric: Normal Mood Description: Calm Affect: Normal Speech Pattern: Clear, Appropriate - Laboratory and Diagnostics Result Diagrams: 04/29/18 05:00 04/29/18 07:32 Labs: 04/27/18 08:38 Blood Blood Culture - Preliminary 04/27/18 08:32 Blood Blood Culture - Preliminary 04/24/18 16:03 Blood Blood Culture - Final 04/24/18 16:18 Abdomen Gram Stain - Final 04/24/18 16:18 Abdomen Wound Culture - Final Methicillin Resis Staph Aureus 04/24/18 15:56 Blood Blood Culture - Preliminary Laboratory WBC 6.1 X10^3/uL (3.6-10.0) 04/29/18 05:00 RBC 3.54 X10^6/uL (3.5-5.4) 04/29/18 05:00 Hgb 10.6 g/dL (12.0-16.0) L 04/29/18 05:00 Hct 31.3 % (36.0-47.0) L 04/29/18 05:00 MCV 88.3 fL (80.0-100.0) 04/29/18 05:00 MCH 30.1 pg (27.0-34.0) 04/29/18 05:00 MCHC 34.0 g/dL (33.0-35.0) 04/29/18 05:00 RDW 14.7 % (11.6-16.5) 04/29/18 05:00 Plt Count 211 X10^3/uL (150.0-450.0) 04/29/18 05:00 MPV 8.6 fL (7.4-11.0) 04/29/18 05:00 Neut % (Auto) 48.1 % (42.0-75.0) 04/29/18 05:00 Lymph % (Auto) 35.9 % (21.0-51.0) 04/29/18 05:00 [place] % (Auto) 6.0 % (0.0-13.0) 04/29/18 05:00 Eos % (Auto) 9.2 % (0.9-2.9) H 04/29/18 05:00 Baso % (Auto) 0.8 % (0.2-1.0) 04/29/18 05:00 Neut # (Auto) 2.9 x10^3/uL (2.2-4.8) 04/29/18 05:00 Lymph # (Auto) 2.2 X10^3/uL (1.3-2.9) 04/29/18 05:00 [place] # (Auto) 0.4 x10^3/uL (0.3-0.8) 04/29/18 05:00 Eos # (Auto) 0.6 x10^3/uL (0.0-0.2) H 04/29/18 05:00 Baso # (Auto) 0.0 X10^3/uL (0.0-0.1) 04/29/18 05:00 Absolute Nucleated RBC 0.0 /100WBC 04/29/18 05:00 Sodium 142 mmol/L (136-145) 04/29/18 05:00 Corrected Sodium TNP 04/29/18 05:00 Potassium 3.6 mmol/L (3.5-5.1) 04/29/18 05:00 Chloride 107 mmol/L (98-107) 04/29/18 05:00 Carbon Dioxide 29.1 mmol/L (21-32) 04/29/18 05:00 BUN 7 mg/dL (7-18) 04/29/18 05:00 Creatinine 0.74 mg/dL (0.55-1.02) 04/29/18 07:32 Est GFR (MDRD) Af Amer > 60 (>60) 04/29/18 05:00 Est GFR (MDRD) Non-Af > 60 (>60) 04/29/18 05:00 Glucose 83 mg/dL (65-99) 04/29/18 05:00 Calcium 7.8 mg/dL (8.5-10.1) L 04/29/18 05:00 Corrected Calcium 9.0 mg/dL (8.5-10.1) 04/29/18 05:00 Total Bilirubin 0.20 mg/dL (0.2-1.0) 04/29/18 05:00 AST 14 Units/L (15-37) L 04/29/18 05:00 ALT 16 Units/L (12-78) 04/29/18 05:00 Alkaline Phosphatase 62 Units/L (46-116) 04/29/18 05:00 Total Protein 5.9 g/dL (6.4-8.2) L 04/29/18 05:00 Albumin 2.5 g/dL (3.4-5.0) L 04/29/18 05:00 Globulin 3.4 g/dL (2.5-4.5) 04/29/18 05:00 Albumin/Globulin Ratio 0.7 Ratio (1.1-2.1) L 04/29/18 05:00 Vancomycin Trough 13.9 ug/mL (15-20) L 04/29/18 07:32 - Plan (1) Abdominal wall cellulitis Status: Acute Plan: VANCOMYCIN 1GM IV Q12H, CONTINUE IV FORTAZ, WOUND CULTURES, BLOOD CULTURES, CONTINUE TO MONITOR (2) MRSA (methicillin resistant Staphylococcus aureus) infection Status: Acute Plan: VANCOMYCIN 1GM IV BID, WOUND CARE, CONTINUE TO MONITOR (3) Tinea corporis Status: Acute Plan: IV DIFLUCAN, NYSTATIN POWDER, CONTINUE TO MONITOR (4) Tinea cruris Status: Acute Plan: IV DIFLUCAN, NYSTATIN POWDER, CONTINUE TO MONITOR
--- NOTE | 2018-04-29 21:23 | PCM.PROG ---
Progress Note - Progress Note for Day of Date of Exam: 04/28/18 - Subjective Subjective: WAS ADMITTED FOR CELLULITIS OF THE LOWER ABDOMEN WELL TINEA CORPORIS AND TINEA CRURIS TO THE ABDOMINAL SKIN FOLDS, GROIN, UPPER THIGHS, AND UNDER BREAST. TODAY, SHE IS ALERT AND ORIENTED, LYING IN BED ON MORNING ROUNDS. SHE CONTINUES WITH PAIN TO ABDOMEN, BUT REPORTS IMPOVEMENT SINCE YESTERDAY. SHE CONTINUES WITH SEROUS DRAINAGE NOTED IN ABOVE MENTIONED AREAS WITH A FOUL ODOR. VITALS AND LABS ARE STABLE THIS MORNING. WOUND CULTURES OF ABDOMEN REPORT GROWTH OF MRSA. WE WILL CONTINUE WITH IV ANTIBIOTICS, WOUND CARE, AND CURRENT PLAN OF CARE TODAY. WE WILL ADD GENTAMICIN CREAM TO WOUNDS. OTHERWISE, WE WILL FOLLOW UP WITH AM LABS AND CONTINUE TO MONITOR PATIENT. - Past Medical Family Social History Past Med/Fam/Surg Hx: No changes since H&P Allergies: Allergies chlordiazepoxide Allergy (Verified 04/24/18 19:34) ciprofloxacin [From Cipro] Allergy (Verified 04/24/18 19:34) dicyclomine [From Bentyl] Allergy (Verified 04/24/18 19:34) pantoprazole [From Protonix] Allergy (Verified 04/24/18 19:34) Penicillins Allergy (Verified 04/24/18 19:34) ranitidine Allergy (Verified 04/24/18 19:34) tramadol Allergy (Verified 04/24/18 19:34) - Review of Systems ROS: No change since H&P - Vital Signs and I&O's Vital Signs: Temperature 98.0 F Pulse Rate [Right Brachial] 62 Respiratory Rate 18 Blood Pressure [Left Arm] 116/64 Blood Pressure [Right Arm] 119/59 Blood Pressure 123/83 O2 Sat by Pulse Oximetry 92 Intake and Output: Intake & Output 04/27/18 04/28/18 04/29/18 04/30/18 11:59 11:59 11:59 11:59 Intake Total 960 / 960 1670 / 1670 2540 / 2540 950 / 950 Balance 960 / 960 1670 / 1670 2540 / 2540 950 / 950 - Physical Exam Oriented: Normal Eyes: Normal Ear: Normal Nose: Normal Throat: Normal Respiratory: Generalized, Diminished Cardiovascular: Normal : Normal Auscultation: Bowel Sounds: Normal Palpation: Normal Tenderness: Normal Skin: Rash, Red, Tender, Wound Musculoskeletal: Normal Psychiatric: Normal Mood Description: Calm Affect: Normal Speech Pattern: Clear, Appropriate - Laboratory and Diagnostics Result Diagrams: 04/29/18 05:00 04/29/18 07:32 Labs: 04/27/18 08:38 Blood Blood Culture - Preliminary 04/27/18 08:32 Blood Blood Culture - Preliminary 04/24/18 16:03 Blood Blood Culture - Final 04/24/18 16:18 Abdomen Gram Stain - Final 04/24/18 16:18 Abdomen Wound Culture - Final Methicillin Resis Staph Aureus 04/24/18 15:56 Blood Blood Culture - Preliminary Laboratory WBC 6.1 X10^3/uL (3.6-10.0) 04/29/18 05:00 RBC 3.54 X10^6/uL (3.5-5.4) 04/29/18 05:00 Hgb 10.6 g/dL (12.0-16.0) L 04/29/18 05:00 Hct 31.3 % (36.0-47.0) L 04/29/18 05:00 MCV 88.3 fL (80.0-100.0) 04/29/18 05:00 MCH 30.1 pg (27.0-34.0) 04/29/18 05:00 MCHC 34.0 g/dL (33.0-35.0) 04/29/18 05:00 RDW 14.7 % (11.6-16.5) 04/29/18 05:00 Plt Count 211 X10^3/uL (150.0-450.0) 04/29/18 05:00 MPV 8.6 fL (7.4-11.0) 04/29/18 05:00 Neut % (Auto) 48.1 % (42.0-75.0) 04/29/18 05:00 Lymph % (Auto) 35.9 % (21.0-51.0) 04/29/18 05:00 [place] % (Auto) 6.0 % (0.0-13.0) 04/29/18 05:00 Eos % (Auto) 9.2 % (0.9-2.9) H 04/29/18 05:00 Baso % (Auto) 0.8 % (0.2-1.0) 04/29/18 05:00 Neut # (Auto) 2.9 x10^3/uL (2.2-4.8) 04/29/18 05:00 Lymph # (Auto) 2.2 X10^3/uL (1.3-2.9) 04/29/18 05:00 [place] # (Auto) 0.4 x10^3/uL (0.3-0.8) 04/29/18 05:00 Eos # (Auto) 0.6 x10^3/uL (0.0-0.2) H 04/29/18 05:00 Baso # (Auto) 0.0 X10^3/uL (0.0-0.1) 04/29/18 05:00 Absolute Nucleated RBC 0.0 /100WBC 04/29/18 05:00 Sodium 142 mmol/L (136-145) 04/29/18 05:00 Corrected Sodium TNP 04/29/18 05:00 Potassium 3.6 mmol/L (3.5-5.1) 04/29/18 05:00 Chloride 107 mmol/L (98-107) 04/29/18 05:00 Carbon Dioxide 29.1 mmol/L (21-32) 04/29/18 05:00 BUN 7 mg/dL (7-18) 04/29/18 05:00 Creatinine 0.74 mg/dL (0.55-1.02) 04/29/18 07:32 Est GFR (MDRD) Af Amer > 60 (>60) 04/29/18 05:00 Est GFR (MDRD) Non-Af > 60 (>60) 04/29/18 05:00 Glucose 83 mg/dL (65-99) 04/29/18 05:00 Calcium 7.8 mg/dL (8.5-10.1) L 04/29/18 05:00 Corrected Calcium 9.0 mg/dL (8.5-10.1) 04/29/18 05:00 Total Bilirubin 0.20 mg/dL (0.2-1.0) 04/29/18 05:00 AST 14 Units/L (15-37) L 04/29/18 05:00 ALT 16 Units/L (12-78) 04/29/18 05:00 Alkaline Phosphatase 62 Units/L (46-116) 04/29/18 05:00 Total Protein 5.9 g/dL (6.4-8.2) L 04/29/18 05:00 Albumin 2.5 g/dL (3.4-5.0) L 04/29/18 05:00 Globulin 3.4 g/dL (2.5-4.5) 04/29/18 05:00 Albumin/Globulin Ratio 0.7 Ratio (1.1-2.1) L 04/29/18 05:00 Vancomycin Trough 13.9 ug/mL (15-20) L 04/29/18 07:32 - Plan (1) Abdominal wall cellulitis Status: Acute Plan: VANCOMYCIN 1GM IV Q12H, CONTINUE IV FORTAZ, WOUND CULTURES, BLOOD CULTURES, CONTINUE TO MONITOR (2) MRSA (methicillin resistant Staphylococcus aureus) infection Status: Acute Plan: VANCOMYCIN 1GM IV BID, WOUND CARE, CONTINUE TO MONITOR (3) Tinea corporis Status: Acute Plan: IV DIFLUCAN, NYSTATIN POWDER, CONTINUE TO MONITOR (4) Tinea cruris Status: Acute Plan: IV DIFLUCAN, NYSTATIN POWDER, CONTINUE TO MONITOR
[2018-04-29] MEDS: COLACE CAP 100 MG PO SCH (22:01)
[2018-04-29] MEDS: PHENERGAN TAB 25 MG PO PRN (22:02)
[2018-04-29] MEDS: ZOCOR TAB 10 MG PO SCH (22:02)
[2018-04-29] MEDS: DUONEB 0.5 MG/3 MG NEB PRN (22:55)
[2018-04-30] MEDS: FORTAZ or TAZICEF VIAL INJ IVP SCH ×3 (05:57→21:17)
[2018-04-30] MEDS: XANAX PO SCH ×3 (05:57→21:22)
[2018-04-30 06:19] LABS: BASOPHILS # (AUTO) 0.1 X10^3/uL (0.0-0.1); BASOPHILS % (AUTO) 0.8 % (0.2-1.0); EOSINOPHILS # (AUTO) 0.4 x10^3/uL (0.0-0.2); EOSINOPHILS % (AUTO) 6.3 % (0.9-2.9); HEMATOCRIT 30.1 % (36.0-47.0); HEMOGLOBIN 10.4 g/dL (12.0-16.0); LYMPHOCYTES # (AUTO) 2.1 X10^3/uL (1.3-2.9); LYMPHOCYTES % (AUTO) 29.2 % (21.0-51.0); MEAN CORPUSCULAR HGB CONC 34.4 g/dL (33.0-35.0); MEAN CORPUSCULAR VOLUME 87.1 fL (80.0-100.0); MEAN PLATELET VOLUME 8.7 fL (7.4-11.0); MONOCYTES # (AUTO) 0.4 x10^3/uL (0.3-0.8); MONOCYTES % (AUTO) 6.4 % (0.0-13.0); NEUTROPHILS % (AUTO) 57.3 % (42.0-75.0); PLATELET COUNT 203 X10^3/uL (150.0-450.0); RED BLOOD COUNT 3.46 X10^6/uL (3.5-5.4); RED CELL DISTRIBUTION WIDTH 14.7 % (11.6-16.5)
[2018-04-30 06:39] LABS: ALANINE AMINOTRANSFERASE 20 Units/L (12-78); ALBUMIN 2.6 g/dL (3.4-5.0); ALKALINE PHOSPHATASE 60 Units/L (46-116); ASPARTATE AMINO TRANSFERASE 16 Units/L (15-37); BLOOD UREA NITROGEN 6 mg/dL (7-18); CALCIUM 7.8 mg/dL (8.5-10.1); CARBON DIOXIDE 26.8 mmol/L (21-32); CHLORIDE 105 mmol/L (98-107); COR CA(FOR HYPOALB) 8.9 mg/dL (8.5-10.1); CREATININE 0.81 mg/dL (0.55-1.02); SODIUM 141 mmol/L (136-145); TOTAL PROTEIN 6.1 g/dL (6.4-8.2); eGFR NON BLACK RACES > 60 (>60)
[2018-04-30] MEDS ORDERED: MICRO K EXTEN CAP 10 MEQ PO PRN (06:47)
[2018-04-30] MEDS ORDERED: K-RIDER 10 MEQ/NS 100 ML 10 MEQ/100 ML BAG IV PRN (06:47)
[2018-04-30] MEDS ORDERED: MAGNESIUM SULFATE 1 GRAM/100 mL PREMIX 1 GM/100 ML BAG IV PRN (06:47)
[2018-04-30] MEDS ORDERED: POTASSIUM CHLORIDE LIQ 20 MEQ UDC PO PRN (06:47)
[2018-04-30] MEDS ORDERED: POTASSIUM CHL 40 MEQ/NS 0.45% 500 ML IV PRN (06:47)
[2018-04-30] MEDS ORDERED: KLOR-CON PO PRN (06:47)
[2018-04-30] MEDS ORDERED: POTASSIUM CHL 60 MEQ/NS 0.45% 500 ML IV PRN (06:47)
[2018-04-30] MEDS: CARDIZEM SR 120 MG PO SCH (09:23)
[2018-04-30] MEDS: DIFLUCAN PO SCH (09:23)
[2018-04-30] MEDS: ASPIRIN EC 81 MG PO SCH (09:24)
[2018-04-30] MEDS: VANCOMYCIN 1 GRAM PREMIX (ADDVANTAGE) 250 ML IV SCH ×2 (09:24→21:17)
[2018-04-30] MEDS: NexIUM PO SCH ×2 (09:24→21:17)
[2018-04-30] MEDS: CELEXA PO SCH (09:24)
[2018-04-30] MEDS: NEURONTIN CAP 300 MG PO SCH ×4 (09:24→21:16)
[2018-04-30] MEDS: GENTAMICIN TOPICAL CRM TOP SCH ×2 (09:28→21:17)
[2018-04-30] MEDS: NYSTATIN POWDER TOP SCH ×2 (09:29→21:17)
[2018-04-30] MEDS: BENADRYL CAP/TAB 25 MG PO PRN ×2 (09:50→21:22)
[2018-04-30] MEDS: NORCO 10/325 TAB PO PRN ×2 (09:50→21:22)
[2018-04-30] MEDS: DUONEB 0.5 MG/3 MG NEB PRN (17:08)
[2018-04-30 21:03] LABS: CREATININE 0.81 mg/dL (0.55-1.02); VANCOMYCIN,TROUGH 12.8 ug/mL (15-20)
[2018-04-30] MEDS: COLACE CAP 100 MG PO SCH (21:16)
[2018-04-30] MEDS: ZOCOR TAB 10 MG PO SCH (21:17)
[2018-04-30] MEDS: PHENERGAN TAB 25 MG PO PRN (21:22)
[2018-05-01] MEDS: XANAX PO SCH ×3 (06:15→21:34)
[2018-05-01] MEDS: FORTAZ or TAZICEF VIAL INJ IVP SCH ×3 (06:15→21:34)
[2018-05-01 06:24] LABS: BASOPHILS # (AUTO) 0.1 X10^3/uL (0.0-0.1); BASOPHILS % (AUTO) 1.1 % (0.2-1.0); EOSINOPHILS # (AUTO) 0.5 x10^3/uL (0.0-0.2); EOSINOPHILS % (AUTO) 8.9 % (0.9-2.9); HEMATOCRIT 31.5 % (36.0-47.0); HEMOGLOBIN 10.8 g/dL (12.0-16.0); LYMPHOCYTES # (AUTO) 1.7 X10^3/uL (1.3-2.9); LYMPHOCYTES % (AUTO) 31.7 % (21.0-51.0); MEAN CORPUSCULAR HEMOGLOBIN 29.9 pg (27.0-34.0); MEAN CORPUSCULAR HGB CONC 34.3 g/dL (33.0-35.0); MEAN CORPUSCULAR VOLUME 87.2 fL (80.0-100.0); MEAN PLATELET VOLUME 8.3 fL (7.4-11.0); MONOCYTES # (AUTO) 0.4 x10^3/uL (0.3-0.8); MONOCYTES % (AUTO) 7.1 % (0.0-13.0); NEUTROPHILS # (AUTO) 2.8 x10^3/uL (2.2-4.8); NEUTROPHILS % (AUTO) 51.2 % (42.0-75.0); PLATELET COUNT 209 X10^3/uL (150.0-450.0); RED BLOOD COUNT 3.62 X10^6/uL (3.5-5.4); RED CELL DISTRIBUTION WIDTH 14.7 % (11.6-16.5); WHITE BLOOD COUNT 5.4 X10^3/uL (3.6-10.0)
--- NOTE | 2018-05-01 06:33 | RAD ---
HISTORY: Shortness of breath Study: Chest AP portable Comparison: 04/29/2018 Findings: The heart is enlarged. No definite congestive heart failure is noted. No acute alveolar infiltrates o r pleural effusions are identified. The bony thorax is unremarkable. IMPRESSION: Persistent cardiomegaly but without congestive heart failure on today's examination No infiltrates Reported By:
[2018-05-01 06:36] LABS: ALANINE AMINOTRANSFERASE 21 Units/L (12-78); ALBUMIN 2.6 g/dL (3.4-5.0); ALKALINE PHOSPHATASE 60 Units/L (46-116); ASPARTATE AMINO TRANSFERASE 22 Units/L (15-37); BLOOD UREA NITROGEN 4 mg/dL (7-18); CARBON DIOXIDE 27.5 mmol/L (21-32); CHLORIDE 106 mmol/L (98-107); COR CA(FOR HYPOALB) 9.1 mg/dL (8.5-10.1); CREATININE 0.74 mg/dL (0.55-1.02); SODIUM 142 mmol/L (136-145); TOTAL PROTEIN 6.2 g/dL (6.4-8.2); eGFR NON BLACK RACES > 60 (>60)
[2018-05-01] MEDS: VANCOMYCIN 1 GRAM PREMIX (ADDVANTAGE) 250 ML IV SCH ×2 (08:55→21:34)
[2018-05-01] MEDS: CARDIZEM SR 120 MG PO SCH (08:56)
[2018-05-01] MEDS: CELEXA PO SCH (08:57)
[2018-05-01] MEDS: NYSTATIN POWDER TOP SCH ×2 (08:57→21:36)
[2018-05-01] MEDS: NexIUM PO SCH ×2 (08:57→21:31)
[2018-05-01] MEDS: DIFLUCAN PO SCH (08:57)
[2018-05-01] MEDS: GENTAMICIN TOPICAL CRM TOP SCH ×2 (08:57→21:37)
[2018-05-01] MEDS: NEURONTIN CAP 300 MG PO SCH ×4 (08:57→21:31)
[2018-05-01] MEDS: ASPIRIN EC 81 MG PO SCH (08:57)
[2018-05-01] MEDS: DUONEB 0.5 MG/3 MG NEB PRN (09:00)
[2018-05-01] MEDS: K-DUR TAB 20 MEQ PO PRN ×2 (09:12→21:31)
[2018-05-01] MEDS: NORCO 10/325 TAB PO PRN ×2 (09:22→21:32)
[2018-05-01] MEDS: BENADRYL CAP/TAB 25 MG PO PRN ×2 (09:23→21:33)
--- NOTE | 2018-05-01 10:47 | PCM.PROG ---
Progress Note - Progress Note for Day of Date of Exam: 04/29/18 - Subjective Subjective: WAS ADMITTED FOR CELLULITIS OF THE LOWER ABDOMEN WELL TINEA CORPORIS AND TINEA CRURIS TO THE ABDOMINAL SKIN FOLDS, GROIN, UPPER THIGHS, AND UNDER BREAST. TODAY, SHE IS ALERT AND ORIENTED, LYING IN BED ON MORNING ROUNDS. SHE REPORTS IMPROVEMENT IN PAIN AND DECREASED DRAINAGE. HER VITALS THIS MORNING ARE 98.4-78-16-90% RA-124/59. LABS WERE OBTAINED. ABNORMAL LAB VALUES INCLUDE THE FOLLOWING: HGB 106, HCT 31.3, CALCIUM 7.8, AST 14, TOTAL PROTEIN 5.9, ALBUMIN 2.5. WOUND CULTURES POSITIVE FOR MRSA. WE WILL CONTINUE WITH IV ANTIBIOTICS, DIFLUCAN, WOUND CARE, AND CURRENT PLAN OF CARE TODAY. PHYSICAL THERAPY CONTINUES TO WORK WITH PATIENT. OTHERWISE, WE WILL FOLLOW UP WITH AM LABS AND CONTINUE TO MONITOR PATIENT. - Past Medical Family Social History Past Med/Fam/Surg Hx: No changes since H&P Allergies: Allergies chlordiazepoxide Allergy (Verified 04/24/18 19:34) ciprofloxacin [From Cipro] Allergy (Verified 04/24/18 19:34) dicyclomine [From Bentyl] Allergy (Verified 04/24/18 19:34) pantoprazole [From Protonix] Allergy (Verified 04/24/18 19:34) Penicillins Allergy (Verified 04/24/18 19:34) ranitidine Allergy (Verified 04/24/18 19:34) tramadol Allergy (Verified 04/24/18 19:34) - Review of Systems ROS: No change since H&P - Vital Signs and I&O's Vital Signs: Temperature 97.7 F Pulse Rate [Right Brachial] 66 Pulse Rate 68 Respiratory Rate 20 Blood Pressure [Left Arm] 113/64 Blood Pressure [Right Arm] 161/75 Blood Pressure 123/83 O2 Sat by Pulse Oximetry 97 Intake and Output: Intake & Output 04/28/18 04/29/18 04/30/18 05/01/18 11:59 11:59 11:59 11:59 Intake Total 1670 / 1670 2540 / 2540 1290 / 1290 1180 / 1180 Output Total 0 / 0 Balance 1670 / 1670 2540 / 2540 1290 / 1290 1180 / 1180 - Physical Exam Oriented: Normal Eyes: Normal Ear: Normal Nose: Normal Throat: Normal Respiratory: Generalized, Diminished Cardiovascular: Normal : Normal Auscultation: Bowel Sounds: Normal Palpation: Normal Tenderness: Normal Skin: Rash, Red, Tender, Wound Musculoskeletal: Normal Psychiatric: Normal Mood Description: Calm Affect: Normal Speech Pattern: Clear, Appropriate - Laboratory and Diagnostics Result Diagrams: 05/01/18 05:35 05/01/18 05:35 Labs: 04/24/18 15:56 Blood Blood Culture - Final 04/27/18 08:38 Blood Blood Culture - Preliminary 04/27/18 08:32 Blood Blood Culture - Preliminary 04/24/18 16:03 Blood Blood Culture - Final 04/24/18 16:18 Abdomen Gram Stain - Final 04/24/18 16:18 Abdomen Wound Culture - Final Methicillin Resis Staph Aureus Laboratory WBC 5.4 X10^3/uL (3.6-10.0) 05/01/18 05:35 RBC 3.62 X10^6/uL (3.5-5.4) 05/01/18 05:35 Hgb 10.8 g/dL (12.0-16.0) L 05/01/18 05:35 Hct 31.5 % (36.0-47.0) L 05/01/18 05:35 MCV 87.2 fL (80.0-100.0) 05/01/18 05:35 MCH 29.9 pg (27.0-34.0) 05/01/18 05:35 MCHC 34.3 g/dL (33.0-35.0) 05/01/18 05:35 RDW 14.7 % (11.6-16.5) 05/01/18 05:35 Plt Count 209 X10^3/uL (150.0-450.0) 05/01/18 05:35 MPV 8.3 fL (7.4-11.0) 05/01/18 05:35 Neut % (Auto) 51.2 % (42.0-75.0) 05/01/18 05:35 Lymph % (Auto) 31.7 % (21.0-51.0) 05/01/18 05:35 [place] % (Auto) 7.1 % (0.0-13.0) 05/01/18 05:35 Eos % (Auto) 8.9 % (0.9-2.9) H 05/01/18 05:35 Baso % (Auto) 1.1 % (0.2-1.0) H 05/01/18 05:35 Neut # (Auto) 2.8 x10^3/uL (2.2-4.8) 05/01/18 05:35 Lymph # (Auto) 1.7 X10^3/uL (1.3-2.9) 05/01/18 05:35 [place] # (Auto) 0.4 x10^3/uL (0.3-0.8) 05/01/18 05:35 Eos # (Auto) 0.5 x10^3/uL (0.0-0.2) H 05/01/18 05:35 Baso # (Auto) 0.1 X10^3/uL (0.0-0.1) 05/01/18 05:35 Absolute Nucleated RBC 0.0 /100WBC 05/01/18 05:35 Sodium 142 mmol/L (136-145) 05/01/18 05:35 Corrected Sodium TNP 05/01/18 05:35 Potassium 3.2 mmol/L (3.5-5.1) L 05/01/18 05:35 Chloride 106 mmol/L (98-107) 05/01/18 05:35 Carbon Dioxide 27.5 mmol/L (21-32) 05/01/18 05:35 BUN 4 mg/dL (7-18) L 05/01/18 05:35 Creatinine 0.74 mg/dL (0.55-1.02) 05/01/18 05:35 Est GFR (MDRD) Af Amer > 60 (>60) 05/01/18 05:35 Est GFR (MDRD) Non-Af > 60 (>60) 05/01/18 05:35 Glucose 89 mg/dL (65-99) 05/01/18 05:35 Calcium 8.0 mg/dL (8.5-10.1) L 05/01/18 05:35 Corrected Calcium 9.1 mg/dL (8.5-10.1) 05/01/18 05:35 Magnesium 2.1 mg/dL (1.7-2.9) 04/30/18 05:10 Total Bilirubin 0.20 mg/dL (0.2-1.0) 05/01/18 05:35 AST 22 Units/L (15-37) 05/01/18 05:35 ALT 21 Units/L (12-78) 05/01/18 05:35 Alkaline Phosphatase 60 Units/L (46-116) 05/01/18 05:35 Total Protein 6.2 g/dL (6.4-8.2) L 05/01/18 05:35 Albumin 2.6 g/dL (3.4-5.0) L 05/01/18 05:35 Globulin 3.6 g/dL (2.5-4.5) 05/01/18 05:35 Albumin/Globulin Ratio 0.7 Ratio (1.1-2.1) L 05/01/18 05:35 Vancomycin Trough 12.8 ug/mL (15-20) L 04/30/18 20:28 - Plan (1) Abdominal wall cellulitis Status: Acute Plan: VANCOMYCIN 1GM IV Q12H, CONTINUE IV FORTAZ, WOUND CULTURES, BLOOD CULTURES, CONTINUE TO MONITOR (2) MRSA (methicillin resistant Staphylococcus aureus) infection Status: Acute Plan: VANCOMYCIN 1GM IV BID, WOUND CARE, CONTINUE TO MONITOR (3) Tinea corporis Status: Acute Plan: IV DIFLUCAN, NYSTATIN POWDER, CONTINUE TO MONITOR (4) Tinea cruris Status: Acute Plan: IV DIFLUCAN, NYSTATIN POWDER, CONTINUE TO MONITOR
[2018-05-01] MEDS: DUONEB 0.5 MG/3 MG NEB SCH ×3 (12:20→20:50)
[2018-05-01 20:29] LABS: CREATININE 0.93 mg/dL (0.55-1.02); VANCOMYCIN,TROUGH 14.1 ug/mL (15-20)
--- NOTE | 2018-05-01 21:20 | PCM.PROG ---
Progress Note - Progress Note for Day of Date of Exam: 04/30/18 - Subjective Subjective: WAS ADMITTED FOR CELLULITIS OF THE LOWER ABDOMEN WELL TINEA CORPORIS AND TINEA CRURIS TO THE ABDOMINAL SKIN FOLDS, GROIN, UPPER THIGHS, AND UNDER BREAST. TODAY, SHE IS ALERT AND ORIENTED, LYING IN BED ON MORNING ROUNDS. SHE REPORTS CONTINUED IMPROVEMENT IN PAIN AND DECREASED DRAINAGE, HOWEVER, TODAY SHE IS NOTED WITH NEW SYMPTOMS OF SHORTNESS OF BREATH AND COUGH. HER VITALS THIS MORNING ARE 97.0-55-03-90-134/72. LABS WERE OBTAINED. ABNORMAL LAB VALUES INCLUDE THE FOLLOWING: RBC 3.46, HGB 10.4, HCT 30.1, BUN 6, CALCIUM 7.8, TOTAL PROTEIN 6.1, ALBUMIN 2.6. A CHEST XRAY WAS OBTAINED YESTERDAY AND REVEALED: Continued normal heart size. Mild central pulmonary vascular cristobal estion without evidence for pneumonia, pleural fluid or rocio pulmonary edema. WOUND CULTURES POSITIVE FOR MRSA. WE WILL CONTINUE WITH IV ANTIBIOTICS, DIFLUCAN, WOUND CARE, AND CURRENT PLAN OF CARE TODAY. WE WILL START NEB [place]. PHYSICAL THERAPY CONTINUES TO WORK WITH PATIENT. OTHERWISE, WE WILL FOLLOW UP WITH AM LABS AND CONTINUE TO MONITOR PATIENT. - Past Medical Family Social History Past Med/Fam/Surg Hx: No changes since H&P Allergies: Allergies chlordiazepoxide Allergy (Verified 04/24/18 19:34) ciprofloxacin [From Cipro] Allergy (Verified 04/24/18 19:34) dicyclomine [From Bentyl] Allergy (Verified 04/24/18 19:34) pantoprazole [From Protonix] Allergy (Verified 04/24/18 19:34) Penicillins Allergy (Verified 04/24/18 19:34) ranitidine Allergy (Verified 04/24/18 19:34) tramadol Allergy (Verified 04/24/18 19:34) - Review of Systems ROS: No change since H&P - Vital Signs and I&O's Vital Signs: Temperature 97.8 F Pulse Rate [Right Brachial] 74 Pulse Rate 70 Respiratory Rate 18 Blood Pressure [Left Arm] 126/69 Blood Pressure [Right Arm] 161/75 Blood Pressure 123/83 O2 Sat by Pulse Oximetry 97 Intake and Output: Intake & Output 04/29/18 04/30/18 05/01/18 05/02/18 11:59 11:59 11:59 11:59 Intake Total 2540 / 2540 1290 / 1290 1180 / 1180 500 / 500 Output Total 0 / 0 Balance 2540 / 2540 1290 / 1290 1180 / 1180 500 / 500 - Physical Exam Oriented: Normal Eyes: Normal Ear: Normal Nose: Normal Throat: Normal Respiratory: Generalized, Diminished Cardiovascular: Normal : Normal Auscultation: Bowel Sounds: Normal Palpation: Normal Tenderness: Normal Skin: Rash, Red, Tender, Wound Musculoskeletal: Normal Psychiatric: Normal Mood Description: Calm Affect: Normal Speech Pattern: Clear, Appropriate - Laboratory and Diagnostics Result Diagrams: 05/01/18 05:35 05/01/18 20:10 Labs: 04/24/18 15:56 Blood Blood Culture - Final 04/27/18 08:38 Blood Blood Culture - Preliminary 04/27/18 08:32 Blood Blood Culture - Preliminary 04/24/18 16:03 Blood Blood Culture - Final 04/24/18 16:18 Abdomen Gram Stain - Final 04/24/18 16:18 Abdomen Wound Culture - Final Methicillin Resis Staph Aureus Laboratory WBC 5.4 X10^3/uL (3.6-10.0) 05/01/18 05:35 RBC 3.62 X10^6/uL (3.5-5.4) 05/01/18 05:35 Hgb 10.8 g/dL (12.0-16.0) L 05/01/18 05:35 Hct 31.5 % (36.0-47.0) L 05/01/18 05:35 MCV 87.2 fL (80.0-100.0) 05/01/18 05:35 MCH 29.9 pg (27.0-34.0) 05/01/18 05:35 MCHC 34.3 g/dL (33.0-35.0) 05/01/18 05:35 RDW 14.7 % (11.6-16.5) 05/01/18 05:35 Plt Count 209 X10^3/uL (150.0-450.0) 05/01/18 05:35 MPV 8.3 fL (7.4-11.0) 05/01/18 05:35 Neut % (Auto) 51.2 % (42.0-75.0) 05/01/18 05:35 Lymph % (Auto) 31.7 % (21.0-51.0) 05/01/18 05:35 [place] % (Auto) 7.1 % (0.0-13.0) 05/01/18 05:35 Eos % (Auto) 8.9 % (0.9-2.9) H 05/01/18 05:35 Baso % (Auto) 1.1 % (0.2-1.0) H 05/01/18 05:35 Neut # (Auto) 2.8 x10^3/uL (2.2-4.8) 05/01/18 05:35 Lymph # (Auto) 1.7 X10^3/uL (1.3-2.9) 05/01/18 05:35 [place] # (Auto) 0.4 x10^3/uL (0.3-0.8) 05/01/18 05:35 Eos # (Auto) 0.5 x10^3/uL (0.0-0.2) H 05/01/18 05:35 Baso # (Auto) 0.1 X10^3/uL (0.0-0.1) 05/01/18 05:35 Absolute Nucleated RBC 0.0 /100WBC 05/01/18 05:35 Sodium 142 mmol/L (136-145) 05/01/18 05:35 Corrected Sodium TNP 05/01/18 05:35 Potassium 3.2 mmol/L (3.5-5.1) L 05/01/18 05:35 Chloride 106 mmol/L (98-107) 05/01/18 05:35 Carbon Dioxide 27.5 mmol/L (21-32) 05/01/18 05:35 BUN 4 mg/dL (7-18) L 05/01/18 05:35 Creatinine 0.93 mg/dL (0.55-1.02) 05/01/18 20:10 Est GFR (MDRD) Af Amer > 60 (>60) 05/01/18 05:35 Est GFR (MDRD) Non-Af > 60 (>60) 05/01/18 05:35 Glucose 89 mg/dL (65-99) 05/01/18 05:35 Calcium 8.0 mg/dL (8.5-10.1) L 05/01/18 05:35 Corrected Calcium 9.1 mg/dL (8.5-10.1) 05/01/18 05:35 Magnesium 2.1 mg/dL (1.7-2.9) 04/30/18 05:10 Total Bilirubin 0.20 mg/dL (0.2-1.0) 05/01/18 05:35 AST 22 Units/L (15-37) 05/01/18 05:35 ALT 21 Units/L (12-78) 05/01/18 05:35 Alkaline Phosphatase 60 Units/L (46-116) 05/01/18 05:35 Total Protein 6.2 g/dL (6.4-8.2) L 05/01/18 05:35 Albumin 2.6 g/dL (3.4-5.0) L 05/01/18 05:35 Globulin 3.6 g/dL (2.5-4.5) 05/01/18 05:35 Albumin/Globulin Ratio 0.7 Ratio (1.1-2.1) L 05/01/18 05:35 Vancomycin Trough 14.1 ug/mL (15-20) L 05/01/18 20:10 - Plan (1) Abdominal wall cellulitis Status: Acute Plan: VANCOMYCIN 1GM IV Q12H, CONTINUE IV FORTAZ, WOUND CULTURES, BLOOD CULTURES, CONTINUE TO MONITOR (2) MRSA (methicillin resistant Staphylococcus aureus) infection Status: Acute Plan: VANCOMYCIN 1GM IV BID, WOUND CARE, CONTINUE TO MONITOR (3) Tinea corporis Status: Acute Plan: IV DIFLUCAN, NYSTATIN POWDER, CONTINUE TO MONITOR (4) Tinea cruris Status: Acute Plan: IV DIFLUCAN, NYSTATIN POWDER, CONTINUE TO MONITOR (5) Shortness of breath Status: Acute Plan: DUONEBS, CONTINUE TO MONITOR
[2018-05-01] MEDS: ZOCOR TAB 10 MG PO SCH (21:30)
[2018-05-01] MEDS: PHENERGAN TAB 25 MG PO PRN (21:34)
[2018-05-01] MEDS: COLACE CAP 100 MG PO SCH (21:34)
[2018-05-01] MEDS: ROBITUSSIN DM PO PRN (22:37)
[2018-05-02] MEDS: DUONEB 0.5 MG/3 MG NEB SCH ×4 (00:32→14:14)
[2018-05-02 05:59] LABS: BASOPHILS # (AUTO) 0.1 X10^3/uL (0.0-0.1); BASOPHILS % (AUTO) 0.9 % (0.2-1.0); EOSINOPHILS # (AUTO) 0.5 x10^3/uL (0.0-0.2); EOSINOPHILS % (AUTO) 7.7 % (0.9-2.9); HEMOGLOBIN 9.9 g/dL (12.0-16.0); LYMPHOCYTES # (AUTO) 1.9 X10^3/uL (1.3-2.9); LYMPHOCYTES % (AUTO) 29.1 % (21.0-51.0); MEAN CORPUSCULAR HEMOGLOBIN 29.8 pg (27.0-34.0); MEAN CORPUSCULAR HGB CONC 34.2 g/dL (33.0-35.0); MEAN PLATELET VOLUME 8.1 fL (7.4-11.0); MONOCYTES # (AUTO) 0.5 x10^3/uL (0.3-0.8); MONOCYTES % (AUTO) 6.9 % (0.0-13.0); NEUTROPHILS # (AUTO) 3.7 x10^3/uL (2.2-4.8); NEUTROPHILS % (AUTO) 55.4 % (42.0-75.0); PLATELET COUNT 205 X10^3/uL (150.0-450.0); RED BLOOD COUNT 3.33 X10^6/uL (3.5-5.4); RED CELL DISTRIBUTION WIDTH 14.9 % (11.6-16.5); WHITE BLOOD COUNT 6.6 X10^3/uL (3.6-10.0)
[2018-05-02] MEDS: XANAX PO SCH ×2 (06:03→13:17)
[2018-05-02] MEDS: FORTAZ or TAZICEF VIAL INJ IVP SCH ×2 (06:03→13:17)
[2018-05-02 06:14] LABS: ALANINE AMINOTRANSFERASE 20 Units/L (12-78); ALBUMIN 2.5 g/dL (3.4-5.0); ALKALINE PHOSPHATASE 64 Units/L (46-116); ASPARTATE AMINO TRANSFERASE 21 Units/L (15-37); BLOOD UREA NITROGEN 4 mg/dL (7-18); CALCIUM 7.7 mg/dL (8.5-10.1); CARBON DIOXIDE 28.2 mmol/L (21-32); CHLORIDE 106 mmol/L (98-107); COR CA(FOR HYPOALB) 8.9 mg/dL (8.5-10.1); CREATININE 0.77 mg/dL (0.55-1.02); SODIUM 141 mmol/L (136-145); TOTAL PROTEIN 5.8 g/dL (6.4-8.2); eGFR NON BLACK RACES > 60 (>60)
--- NOTE | 2018-05-02 07:15 | RAD ---
HISTORY: Shortness of breath Study: Chest AP portable Comparison: 05/01/2018 Findings: The heart is enlarged. No congestive heart failure is noted. No acute alveolar infiltrates or pleural effusions are identified. The bony thorax is unremarkable. IMPRESSION: Persistent cardiomegaly without definite congestive heart failure No infiltrates Reported By:
[2018-05-02] MEDS: NEURONTIN CAP 300 MG PO SCH ×2 (09:21→13:16)
[2018-05-02] MEDS: VANCOMYCIN 1 GRAM PREMIX (ADDVANTAGE) 250 ML IV SCH (09:21)
[2018-05-02] MEDS: K-DUR TAB 20 MEQ PO PRN (09:21)
[2018-05-02] MEDS: NexIUM PO SCH (09:21)
[2018-05-02] MEDS: DIFLUCAN PO SCH (09:21)
[2018-05-02] MEDS: CELEXA PO SCH (09:22)
[2018-05-02] MEDS: ASPIRIN EC 81 MG PO SCH (09:22)
[2018-05-02] MEDS: CARDIZEM SR 120 MG PO SCH (09:22)
[2018-05-02] MEDS: BENADRYL CAP/TAB 25 MG PO PRN (09:25)
[2018-05-02] MEDS: NORCO 10/325 TAB PO PRN (09:25)
[2018-05-02] MEDS: ROBITUSSIN DM PO PRN (09:26)
--- NOTE | 2018-05-02 11:45 | PCM.PROG ---
Progress Note - Progress Note for Day of Date of Exam: 05/01/18 - Subjective Subjective: WAS ADMITTED FOR CELLULITIS OF THE LOWER ABDOMEN WELL TINEA CORPORIS AND TINEA CRURIS TO THE ABDOMINAL SKIN FOLDS, GROIN, UPPER THIGHS, AND UNDER BREAST. TODAY, SHE IS ALERT AND ORIENTED, LYING IN BED ON MORNING ROUNDS. SHE CONTINUES WITH REDNESS AND DRAINAGE TO ABOVE MENTIONED AREAS. SYMPTOMS OF SHORTNESS OF BREATH AND COUGH CONTINUE AT THIS TIME. HER VITALS THIS MORNING ARE 97.6-64-22-97%-132/76. LABS WERE OBTAINED. ABNORMAL LAB VALUES INCLUDE THE FOLLOWING: HGB 108, HCT 31.5, POTASSIUM 3.2, BUN 4, CALCIUM 8.0, TOTAL PROTEIN 6.2, ALBUMIN 2.6. A CHEST XRAY WAS OBTAINED YESTERDAY AND REVEALED: Persistent cardiomegaly but without congestive heart failure on today's examination. No infiltrates. WOUND CULTURES POSITIVE FOR MRSA. WE WILL CONTINUE WITH IV ANTIBIOTICS, DIFLUCAN, WOUND CARE, AND CURRENT PLAN OF CARE TODAY. WE WILL START NEB [place]. PHYSICAL THERAPY CONTINUES TO WORK WITH PATIENT. OTHERWISE, WE WILL FOLLOW UP WITH AM LABS AND CONTINUE TO MONITOR PATIENT. - Past Medical Family Social History Past Med/Fam/Surg Hx: No changes since H&P Allergies: Allergies chlordiazepoxide Allergy (Verified 04/24/18 19:34) ciprofloxacin [From Cipro] Allergy (Verified 04/24/18 19:34) dicyclomine [From Bentyl] Allergy (Verified 04/24/18 19:34) pantoprazole [From Protonix] Allergy (Verified 04/24/18 19:34) Penicillins Allergy (Verified 04/24/18 19:34) ranitidine Allergy (Verified 04/24/18 19:34) tramadol Allergy (Verified 04/24/18 19:34) - Review of Systems ROS: No change since H&P - Vital Signs and I&O's Vital Signs: Temperature 97.9 F Pulse Rate [Left Brachial] 71 Pulse Rate [Right Brachial] 80 Pulse Rate 77 Respiratory Rate 18 Blood Pressure [Left Arm] 139/84 Blood Pressure [Right Arm] 139/68 Blood Pressure 123/83 O2 Sat by Pulse Oximetry 96 Intake and Output: Intake & Output 04/29/18 04/30/18 05/01/18 05/02/18 11:59 11:59 11:59 11:59 Intake Total 2540 / 2540 1290 / 1290 1180 / 1180 1450 / 1450 Output Total 0 / 0 Balance 2540 / 2540 1290 / 1290 1180 / 1180 1450 / 1450 - Physical Exam Oriented: Normal Eyes: Normal Ear: Normal Nose: Normal Throat: Normal Respiratory: Generalized, Diminished Cardiovascular: Normal : Normal Auscultation: Bowel Sounds: Normal Tenderness: Normal Skin: Rash, Red, Tender, Wound Musculoskeletal: Normal Psychiatric: Normal Mood Description: Calm Affect: Normal Speech Pattern: Clear, Appropriate - Laboratory and Diagnostics Result Diagrams: 05/02/18 05:10 05/02/18 05:10 Labs: 04/27/18 08:38 Blood Blood Culture - Final 04/27/18 08:32 Blood Blood Culture - Final 04/24/18 15:56 Blood Blood Culture - Final 04/24/18 16:03 Blood Blood Culture - Final 04/24/18 16:18 Abdomen Gram Stain - Final 04/24/18 16:18 Abdomen Wound Culture - Final Methicillin Resis Staph Aureus Laboratory WBC 6.6 X10^3/uL (3.6-10.0) 05/02/18 05:10 RBC 3.33 X10^6/uL (3.5-5.4) L 05/02/18 05:10 Hgb 9.9 g/dL (12.0-16.0) L 05/02/18 05:10 Hct 29.0 % (36.0-47.0) L 05/02/18 05:10 MCV 87.0 fL (80.0-100.0) 05/02/18 05:10 MCH 29.8 pg (27.0-34.0) 05/02/18 05:10 MCHC 34.2 g/dL (33.0-35.0) 05/02/18 05:10 RDW 14.9 % (11.6-16.5) 05/02/18 05:10 Plt Count 205 X10^3/uL (150.0-450.0) 05/02/18 05:10 MPV 8.1 fL (7.4-11.0) 05/02/18 05:10 Neut % (Auto) 55.4 % (42.0-75.0) 05/02/18 05:10 Lymph % (Auto) 29.1 % (21.0-51.0) 05/02/18 05:10 [place] % (Auto) 6.9 % (0.0-13.0) 05/02/18 05:10 Eos % (Auto) 7.7 % (0.9-2.9) H 05/02/18 05:10 Baso % (Auto) 0.9 % (0.2-1.0) 05/02/18 05:10 Neut # (Auto) 3.7 x10^3/uL (2.2-4.8) 05/02/18 05:10 Lymph # (Auto) 1.9 X10^3/uL (1.3-2.9) 05/02/18 05:10 [place] # (Auto) 0.5 x10^3/uL (0.3-0.8) 05/02/18 05:10 Eos # (Auto) 0.5 x10^3/uL (0.0-0.2) H 05/02/18 05:10 Baso # (Auto) 0.1 X10^3/uL (0.0-0.1) 05/02/18 05:10 Absolute Nucleated RBC 0.0 /100WBC 05/02/18 05:10 Sodium 141 mmol/L (136-145) 05/02/18 05:10 Corrected Sodium TNP 05/02/18 05:10 Potassium 3.3 mmol/L (3.5-5.1) L 05/02/18 05:10 Chloride 106 mmol/L (98-107) 05/02/18 05:10 Carbon Dioxide 28.2 mmol/L (21-32) 05/02/18 05:10 BUN 4 mg/dL (7-18) L 05/02/18 05:10 Creatinine 0.77 mg/dL (0.55-1.02) 05/02/18 05:10 Est GFR (MDRD) Af Amer > 60 (>60) 05/02/18 05:10 Est GFR (MDRD) Non-Af > 60 (>60) 05/02/18 05:10 Glucose 109 mg/dL (65-99) H 05/02/18 05:10 Calcium 7.7 mg/dL (8.5-10.1) L 05/02/18 05:10 Corrected Calcium 8.9 mg/dL (8.5-10.1) 05/02/18 05:10 Magnesium 2.1 mg/dL (1.7-2.9) 04/30/18 05:10 Total Bilirubin 0.20 mg/dL (0.2-1.0) 05/02/18 05:10 AST 21 Units/L (15-37) 05/02/18 05:10 ALT 20 Units/L (12-78) 05/02/18 05:10 Alkaline Phosphatase 64 Units/L (46-116) 05/02/18 05:10 Total Protein 5.8 g/dL (6.4-8.2) L 05/02/18 05:10 Albumin 2.5 g/dL (3.4-5.0) L 05/02/18 05:10 Globulin 3.3 g/dL (2.5-4.5) 05/02/18 05:10 Albumin/Globulin Ratio 0.8 Ratio (1.1-2.1) L 05/02/18 05:10 Vancomycin Trough 14.1 ug/mL (15-20) L 05/01/18 20:10 - Plan (1) Abdominal wall cellulitis Status: Acute Plan: VANCOMYCIN 1GM IV Q12H, CONTINUE IV FORTAZ, WOUND CULTURES, BLOOD CULTURES, CONTINUE TO MONITOR (2) MRSA (methicillin resistant Staphylococcus aureus) infection Status: Acute Plan: VANCOMYCIN 1GM IV BID, WOUND CARE, CONTINUE TO MONITOR (3) Tinea corporis Status: Acute Plan: IV DIFLUCAN, NYSTATIN POWDER, CONTINUE TO MONITOR (4) Tinea cruris Status: Acute Plan: IV DIFLUCAN, NYSTATIN POWDER, CONTINUE TO MONITOR (5) Shortness of breath Status: Acute Plan: DUONEBS, CONTINUE TO MONITOR
[2018-05-02 12:07] VITALS: BP 131/78
[2018-05-02] MEDS: NYSTATIN POWDER TOP SCH (14:09)
[2018-05-02] MEDS: GENTAMICIN TOPICAL CRM TOP SCH (14:09)
[2018-05-03] MEDS ORDERED: PHARMACY COMMENT IV NR (08:30)
--- NOTE | 2018-06-14 01:16 | DR.CARTERD ---
- Discharge Summary for: Discharge Summary for Date of:: 05/02/18 - Admission Date Date of Admission: 04/24/18 - Admission Diagnoses Admission Diagnosis: (1) Abdominal wall cellulitis (2) Tinea corporis (3) Tinea cruris - Discharge Date Discharge Date: 05/02/18 - Discharge Diagnoses Discharge Diagnosis: (1) MRSA (methicillin resistant Staphylococcus aureus) infection (2) Abdominal wall cellulitis (3) Tinea corporis (4) Tinea cruris (5) Shortness of breath - Hospital Course Hospital Course: DAY ONE, WAS SEEN IN THE OFFICE TODAY. SHE WAS ADMITTED FOR TREATMENT OF CELLULITIS TO THE LOWER ABDOMEN/GROIN WELL TINEA CORPORIS AND TINEA CRURIS. SHE WAS STARTED ON IV FORTAZ, IV DIFLUCAN, AND NYSTATIN POWDER. DAY TWO, SHE WAS ALERT AND ORIENTED, LYING IN BED ON MORNING ROUNDS. SHE CONTINUED WITH PAIN AND ITCHING TO AREA. SHE REPORTED A BURING SENSATION. THERE WAS SEROUS DRAINAGE NOTED IN ABOVE MENTIONED AREAS WITH A FOUL ODOR. HER VITALS THIS MORNING WERE 98.2-71-20-92%-89/50. LABS WERE OBTAINED. ABNORMAL LAB VALUES INCLUDED THE FOLLOWING: HGB 11.7, HCT 34.3, GLUCOSE 127, CALCIUM 8.3, AST 12, TOTAL PROTEIN 6.2, ALBUMIN 2.8. WOUND CULTURES AND BLOOD CULTURES WERE PENDING. SHE WAS CURRENTLY RECEIVING DIFLUCAN 200MG IV DAILY AND FORTAZ 1GM IV Q8H. WE CONTINUED WITH CURRENT PLAN OF CARE AND RESUMED HOME MEDICATIONS TODAY. WE FOLLOWED UP WITH AM LABS AND CONTINUED TO MONITOR PATIENT. DAY FOUR, SHE WAS ALERT AND ORIENTED, LYING IN BED ON MORNING ROUNDS. SHE CONTINUED WITH PAIN TO ABDOMEN. THERE WAS SEROUS DRAINAGE NOTED IN ABOVE MENTIONED AREAS WITH A FOUL ODOR. HER VITALS THIS MORNING WERE 97.6-70-18-93%-115/70. LABS WERE OBTAINED. ABNORMAL LAB VALUES INCLUDED THE FOLLOWING: HGB 10.9, HCT 32.4, GLUCOSE 109, CALCIUM 7.7, AST 13, TOTAL PROTEIN 5.9, ALBUMIN 2.5. WOUND CULTURES OF ABDOMEN REPORTED GROWTH OF MRSA. WE CONTINUED WITH CURRENT PLAN OF CARE TODAY. WE FOLL OWED UP WITH AM LABS AND CONTINUED TO MONITOR PATIENT. DAY SIX, SHE WAS ALERT AND ORIENTED, LYING IN BED ON MORNING ROUNDS. SHE REPORTED IMPROVEMENT IN PAIN AND DECREASED DRAINAGE. HER VITALS THIS MORNING WERE 98.4-78-16-90% RA-124/59. LABS WERE OBTAINED. ABNORMAL LAB VALUES INCLUDED THE FOLLOWING: HGB 106, HCT 31.3, CALCIUM 7.8, AST 14, TOTAL PROTEIN 5.9, ALBUMIN 2.5. WOUND CULTURES POSITIVE FOR MRSA. WE CONTINUED WITH IV ANTIBIOTICS, DIFLUCAN, WOUND CARE, AND CURRENT PLAN OF CARE TODAY. PHYSICAL THERAPY CONTINUED TO WORK WITH PATIENT. WE FOLLOWED UP WITH AM LABS AND CONTINUED TO MONITOR PATIENT. DAY EIGHT, SHE WAS ALERT AND ORIENTED, LYING IN BED ON MORNING ROUNDS. SHE CONTINUED WITH REDNESS AND DRAINAGE TO ABOVE MENTIONED AREAS. SYMPTOMS OF SHORTNESS OF BREATH AND COUGH CONTINUED AT THIS TIME. HER VITALS THIS MORNING WERE 97.6-64-22-97%-132/76. LABS WERE OBTAINED. ABNORMAL LAB VALUES INCLUDE THE FOLLOWING: HGB 108, HCT 31.5, POTASSIUM 3.2, BUN 4, CALCIUM 8.0, TOTAL PROTEIN 6.2, ALBUMIN 2.6. A CHEST XRAY WAS OBTAINED YESTERDAY AND REVEALED: Persistent cardiomegaly but without congestive heart failure on today's examination. No infiltrates. WOUND CULTURES POSITIVE FOR MRSA. WE CONTINUED WITH IV ANTIBIOTICS, DIFLUCAN, WOUND CARE, AND CURRENT PLAN OF CARE TODAY. WE STARTED NEB TX. PHYSICAL THERAPY CONTINUES WORK WITH PATIENT. WE FOLLOWED UP WITH AM LABS AND CONTINUED TO MONITOR PATIENT. DAY NINE. SHE WAS ALERT AND ORIENTED, LYING IN BED ON MORNING ROUNDS. SHE CONTINUED WITH PAIN TO ABDOMEN. THERE WAS SEROUS DRAINAGE NOTED IN ABOVE MENTIONED AREAS WITH A FOUL ODOR. WE DISCUSSED CHANGING PATIENT TO SWING BED STATUS FOR FURTHER TREATMENT OF WOUNDS AND WEAKNESS. PATIENT WAS IN AGREEMENT WITH SWING BED PLAN. PATIENT DISCHARGED INPATIENT AND CHANGED TO SWING BED STATUS. WE WILL CONTINUE TO TREAT AND FOLLOW UP WITH PATIENT IN THE HOSPITAL UNDER SWING BED STATUS. - Discharge Medications Discharge Medications: Home Medication List aspirin 81 mg PO QDAY 04/24/18 [History] gabapentin 1 cap PO QID 04/24/18 [History] hydrocodone-acetaminophen 1 tab PO QID PRN 04/24/18 [History] Prescriptions: Ambulatory Orders Citalopram Hydrobromide [Celexa] 20 mg PO DAILY 09/16/12 Esomeprazole Magnesium [Nexium 40MG CAP] 40 mg PO BID 09/16/12 alprazolam [Xanax] 2 mg PO TID 09/16/12 olmesartan [Benicar] 20 mg PO DAILY 09/16/12 simvastatin 10 mg PO HS 09/16/12 Promethazine HCl 25 mg PO Q6HR PRN #20 tab 02/27/15 diltiazem HCl 1 tab PO DAILY 05/03/18 fluconazole [Diflucan] 150 mg PO DAILY #7 tab 05/07/18 nystatin [Nyamyc] 1 applic TOP BID #1 g 05/07/18 ipratropium-albuterol 3 ml INHALATION Q8H #50 units 05/08/18 sulfamethoxazole-trimethoprim [Bactrim DS] 1 tab PO BID #20 tab 05/08/18 - Discharge Disposition Discharge Disposition: WE WILL FOLLOW UP WITH PATIENT IN THE HOSPITAL UNDER SWING BED STATUS.
== END 2018-05-02 14:40 | disposition swing bed (61) | DRG 603 ==
LOC: MED/SURG 14:57
PROVIDERS: ADMIT Internal Medicine; ATTEND Internal Medicine
DX: B95.62 Methicillin resistant Staphylococcus aureus infection as the cause of diseases classified elsewhere; B35.6 Tinea cruris; L03.311 Cellulitis of abdominal wall; I51.7 Cardiomegaly; B35.4 Tinea corporis; R26.89 Other abnormalities of gait and mobility; F41.1 Generalized anxiety disorder; M51.16 Intervertebral disc disorders with radiculopathy, lumbar region; L03.314 Cellulitis of groin; E78.2 Mixed hyperlipidemia; R06.02 Shortness of breath
CPT/HCPCS: 36415; 71010; 71045; 80053; 80202; 82565; 83735; 85025; 87040; 87070; 87075; 87077; 87186; 87205; 94640; 94669; 94760; 97110; 97116; 97163; 97167; 97535; A4216; A4222; Q0169; J0713; J1450; J3370; J7030; J7050; J7620

== ENCOUNTER 2018-05-02 14:40 | Inpatient (IN) ==
[2018-05-02] MEDS ORDERED: POTASSIUM CHL 60 MEQ/NS 0.45% 500 ML IV PRN (14:54)
[2018-05-02] MEDS ORDERED: K-RIDER 10 MEQ/NS 100 ML 10 MEQ/100 ML BAG IV PRN (14:54)
[2018-05-02] MEDS ORDERED: MICRO K EXTEN CAP 10 MEQ PO PRN (14:54)
[2018-05-02] MEDS ORDERED: PREPARATION H OINT RECTAL PRN (14:54)
[2018-05-02] MEDS ORDERED: K-DUR TAB 20 MEQ PO PRN (14:54)
[2018-05-02] MEDS ORDERED: POTASSIUM CHL 40 MEQ/NS 0.45% 500 ML IV PRN (14:54)
[2018-05-02] MEDS ORDERED: KLOR-CON PO PRN (14:54)
[2018-05-02] MEDS ORDERED: POTASSIUM CHLORIDE LIQ 20 MEQ UDC PO PRN (14:54)
[2018-05-02] MEDS ORDERED: MILK OF MAGNESIA PO PRN (14:54)
[2018-05-02] MEDS ORDERED: DUONEB 0.5 MG/3 MG NEB SCH (17:00)
[2018-05-02] MEDS: NEURONTIN CAP 300 MG PO SCH ×2 (17:55→20:30)
[2018-05-02] MEDS ORDERED: DUONEB 0.5 MG/3 MG NEB PRN (19:45)
[2018-05-02] MEDS ORDERED: NS 1000 ML 1,000 ML ONE (20:26)
[2018-05-02] MEDS: COLACE CAP 100 MG PO SCH (20:29)
[2018-05-02] MEDS: BENICAR TAB 40 MG PO SCH (20:29)
[2018-05-02] MEDS: GENTAMICIN TOPICAL CRM TOP SCH (20:30)
[2018-05-02] MEDS: NexIUM PO SCH (20:30)
[2018-05-02] MEDS: NYSTATIN POWDER TOP SCH (20:31)
[2018-05-02] MEDS: ZOCOR TAB 10 MG PO SCH (20:32)
[2018-05-02] MEDS: VANCOMYCIN HCL 1 GM VIAL 1 G in D5W 250 ML IV 250 ML IV SCH (20:33)
[2018-05-02] MEDS: BENADRYL CAP/TAB 25 MG PO PRN (20:33)
[2018-05-02] MEDS: NORCO 10/325 TAB PO PRN (20:35)
[2018-05-02] MEDS ORDERED: NS 1000 ML 1,000 ML IV PRN (20:37)
[2018-05-02] MEDS: ROBITUSSIN DM PO PRN (20:42)
[2018-05-02] MEDS: PHENERGAN TAB 25 MG PO PRN (21:01)
[2018-05-02] MEDS: XANAX PO SCH (21:01)
[2018-05-02] MEDS: FORTAZ or TAZICEF VIAL INJ IVP SCH (21:01)
[2018-05-03] MEDS: XANAX PO SCH ×3 (05:08→21:01)
[2018-05-03] MEDS: FORTAZ or TAZICEF VIAL INJ IVP SCH ×3 (05:08→21:01)
[2018-05-03 07:53] VITALS: BMI 39.4
[2018-05-03] MEDS ORDERED: PHARMACY COMMENT IV NR (08:30)
[2018-05-03] MEDS: BENADRYL CAP/TAB 25 MG PO PRN ×2 (09:55→20:53)
[2018-05-03] MEDS: CELEXA PO SCH (09:55)
[2018-05-03] MEDS: CARDIZEM SR 120 MG PO SCH (09:55)
[2018-05-03] MEDS: NexIUM PO SCH ×2 (09:55→20:53)
[2018-05-03] MEDS: NORCO 10/325 TAB PO PRN ×2 (09:55→20:54)
[2018-05-03] MEDS: NEURONTIN CAP 300 MG PO SCH ×4 (09:55→20:52)
[2018-05-03] MEDS: ROBITUSSIN DM PO PRN ×2 (09:55→20:53)
[2018-05-03] MEDS: VANCOMYCIN HCL 1 GM VIAL 1 G in D5W 250 ML IV 250 ML IV SCH ×2 (09:56→22:00)
[2018-05-03] MEDS: DIFLUCAN PO SCH (09:56)
[2018-05-03] MEDS: ASPIRIN EC 81 MG PO SCH (09:56)
[2018-05-03] MEDS: BENICAR TAB 40 MG PO SCH ×2 (09:56→20:50)
[2018-05-03] MEDS: GENTAMICIN TOPICAL CRM TOP SCH ×2 (14:25→20:51)
[2018-05-03] MEDS: NYSTATIN POWDER TOP SCH ×2 (14:25→20:52)
[2018-05-03] MEDS: COLACE CAP 100 MG PO SCH (20:51)
[2018-05-03] MEDS: ZOCOR TAB 10 MG PO SCH (20:52)
[2018-05-03] MEDS: PHENERGAN TAB 25 MG PO PRN (20:52)
[2018-05-03 21:24] LABS: CREATININE 0.93 mg/dL (0.55-1.02); VANCOMYCIN,TROUGH 17.5 ug/mL (15-20)
[2018-05-04] MEDS: XANAX PO SCH ×3 (05:14→21:33)
[2018-05-04] MEDS: FORTAZ or TAZICEF VIAL INJ IVP SCH ×3 (05:14→21:32)
[2018-05-04] MEDS: BENICAR TAB 40 MG PO SCH ×2 (10:02→20:39)
[2018-05-04] MEDS: DIFLUCAN PO SCH (10:02)
[2018-05-04] MEDS: NexIUM PO SCH ×2 (10:03→20:39)
[2018-05-04] MEDS: ASPIRIN EC 81 MG PO SCH (10:03)
[2018-05-04] MEDS: VANCOMYCIN HCL 1 GM VIAL 1 G in D5W 250 ML IV 250 ML IV SCH ×2 (10:03→20:41)
[2018-05-04] MEDS: CELEXA PO SCH (10:03)
[2018-05-04] MEDS: NEURONTIN CAP 300 MG PO SCH ×4 (10:03→20:39)
[2018-05-04] MEDS: CARDIZEM SR 120 MG PO SCH (10:03)
[2018-05-04] MEDS: GENTAMICIN TOPICAL CRM TOP SCH ×2 (10:06→20:41)
[2018-05-04] MEDS: NYSTATIN POWDER TOP SCH ×2 (10:07→20:41)
[2018-05-04] MEDS: NORCO 10/325 TAB PO PRN ×2 (10:15→20:39)
[2018-05-04] MEDS: BENADRYL CAP/TAB 25 MG PO PRN ×2 (10:16→20:40)
[2018-05-04] MEDS: PHENERGAN TAB 25 MG PO PRN (20:39)
[2018-05-04] MEDS: COLACE CAP 100 MG PO SCH (20:40)
[2018-05-04] MEDS: ZOCOR TAB 10 MG PO SCH (20:40)
[2018-05-04] MEDS: ROBITUSSIN DM PO PRN (20:42)
--- NOTE | 2018-05-04 22:49 | RAD ---
HISTORY: Central line placement Study: Single view chest Comparison: 05/02/2018 Findings: Left subclavian CVL tip terminates in the region of the mid to distal SVC. No infiltrate, effusion or pneumothorax identified. Cardiac silhouette is mildly enlarged. The soft tissues are unremarkable. IMPRESSION: 1. Left subclavian CVL tip terminates in the region of the SVC. No pneumothorax. Reported By:
[2018-05-05] MEDS: XANAX PO SCH ×3 (05:03→21:21)
[2018-05-05] MEDS: ROBITUSSIN DM PO PRN ×2 (05:03→20:35)
[2018-05-05] MEDS: FORTAZ or TAZICEF VIAL INJ IVP SCH ×2 (05:03→20:35)
[2018-05-05] MEDS: NORCO 10/325 TAB PO PRN ×3 (05:04→20:36)
[2018-05-05 06:07] LABS: BASOPHILS # (AUTO) 0.1 X10^3/uL (0.0-0.1); BASOPHILS % (AUTO) 0.9 % (0.2-1.0); EOSINOPHILS # (AUTO) 0.7 x10^3/uL (0.0-0.2); EOSINOPHILS % (AUTO) 8.9 % (0.9-2.9); HEMATOCRIT 33.7 % (36.0-47.0); HEMOGLOBIN 11.2 g/dL (12.0-16.0); LYMPHOCYTES # (AUTO) 2.2 X10^3/uL (1.3-2.9); LYMPHOCYTES % (AUTO) 30.2 % (21.0-51.0); MEAN CORPUSCULAR HEMOGLOBIN 29.4 pg (27.0-34.0); MEAN CORPUSCULAR HGB CONC 33.4 g/dL (33.0-35.0); MEAN CORPUSCULAR VOLUME 87.9 fL (80.0-100.0); MONOCYTES # (AUTO) 0.3 x10^3/uL (0.3-0.8); MONOCYTES % (AUTO) 4.3 % (0.0-13.0); NEUTROPHILS # (AUTO) 4.1 x10^3/uL (2.2-4.8); NEUTROPHILS % (AUTO) 55.7 % (42.0-75.0); PLATELET COUNT 194 X10^3/uL (150.0-450.0); RED BLOOD COUNT 3.83 X10^6/uL (3.5-5.4); WHITE BLOOD COUNT 7.3 X10^3/uL (3.6-10.0)
[2018-05-05 06:23] LABS: ALANINE AMINOTRANSFERASE 23 Units/L (12-78); ALBUMIN 2.8 g/dL (3.4-5.0); ALKALINE PHOSPHATASE 67 Units/L (46-116); ASPARTATE AMINO TRANSFERASE 20 Units/L (15-37); BLOOD UREA NITROGEN 7 mg/dL (7-18); CALCIUM 8.2 mg/dL (8.5-10.1); CARBON DIOXIDE 29.1 mmol/L (21-32); CHLORIDE 103 mmol/L (98-107); COR CA(FOR HYPOALB) 9.2 mg/dL (8.5-10.1); COR NA(FOR HYPERGLY) 141 mmol/L (136-145); CREATININE 0.83 mg/dL (0.55-1.02); SODIUM 140 mmol/L (136-145); TOTAL PROTEIN 6.5 g/dL (6.4-8.2); eGFR NON BLACK RACES > 60 (>60)
[2018-05-05] MEDS: CELEXA PO SCH (08:13)
[2018-05-05] MEDS: DIFLUCAN PO SCH (08:14)
[2018-05-05] MEDS: ASPIRIN EC 81 MG PO SCH (08:14)
[2018-05-05] MEDS: CARDIZEM SR 120 MG PO SCH (08:14)
[2018-05-05] MEDS: BENADRYL CAP/TAB 25 MG PO PRN ×2 (08:14→20:36)
[2018-05-05] MEDS: NYSTATIN POWDER TOP SCH ×2 (08:14→20:38)
[2018-05-05] MEDS: NEURONTIN CAP 300 MG PO SCH ×4 (08:14→20:36)
[2018-05-05] MEDS: NexIUM PO SCH ×2 (08:14→20:35)
[2018-05-05] MEDS: GENTAMICIN TOPICAL CRM TOP SCH ×2 (08:14→20:38)
[2018-05-05] MEDS: BENICAR TAB 40 MG PO SCH ×2 (08:15→20:35)
[2018-05-05] MEDS: MAGNESIUM SULFATE 1 GRAM/100 mL PREMIX 1 GM/100 ML BAG IV PRN ×2 (08:24→10:29)
[2018-05-05] MEDS ORDERED: PHARMACY COMMENT IV NR (08:30)
[2018-05-05 08:57] LABS: CREATININE 0.76 mg/dL (0.55-1.02); VANCOMYCIN,TROUGH 19.2 ug/mL (15-20)
[2018-05-05] MEDS: VANCOMYCIN HCL 1 GM VIAL 1 G in D5W 250 ML IV 250 ML IV SCH (10:23)
[2018-05-05] MEDS: PHENERGAN TAB 25 MG PO PRN (20:35)
[2018-05-05] MEDS: ZOCOR TAB 10 MG PO SCH (20:36)
[2018-05-05] MEDS: COLACE CAP 100 MG PO SCH (20:36)
[2018-05-06] MEDS: VANCOMYCIN HCL 1 GM VIAL 1 G in D5W 250 ML IV 250 ML IV SCH ×2 (05:29→21:33)
[2018-05-06] MEDS: BENADRYL CAP/TAB 25 MG PO PRN ×2 (05:31→22:37)
[2018-05-06] MEDS: NORCO 10/325 TAB PO PRN (05:31)
[2018-05-06] MEDS: XANAX PO SCH ×3 (05:32→21:28)
[2018-05-06] MEDS: CARDIZEM SR 120 MG PO SCH (08:07)
[2018-05-06] MEDS: NexIUM PO SCH ×2 (08:07→21:28)
[2018-05-06] MEDS: DIFLUCAN PO SCH (08:07)
[2018-05-06] MEDS: CELEXA PO SCH (08:07)
[2018-05-06] MEDS: ASPIRIN EC 81 MG PO SCH (08:07)
[2018-05-06] MEDS: NEURONTIN CAP 300 MG PO SCH ×4 (08:07→21:27)
[2018-05-06] MEDS: BENICAR TAB 40 MG PO SCH ×2 (08:08→21:28)
[2018-05-06] MEDS: FORTAZ or TAZICEF VIAL INJ IVP SCH ×2 (08:08→21:26)
[2018-05-06] MEDS: NYSTATIN POWDER TOP SCH ×2 (08:13→21:24)
[2018-05-06] MEDS: GENTAMICIN TOPICAL CRM TOP SCH ×2 (08:13→21:25)
[2018-05-06] MEDS: PHENERGAN TAB 25 MG PO PRN (12:11)
[2018-05-06] MEDS: ROBITUSSIN DM PO PRN ×2 (14:00→22:37)
[2018-05-06] MEDS ORDERED: TYLENOL 325 MG TAB PO PRN (19:53)
[2018-05-06] MEDS ORDERED: NS 250 ML IV 250 ML IV ONE (21:21)
[2018-05-06] MEDS: COLACE CAP 100 MG PO SCH (21:26)
[2018-05-06] MEDS: ZOCOR TAB 10 MG PO SCH (21:28)
[2018-05-07] MEDS: PHENERGAN TAB 25 MG PO PRN ×2 (05:28→12:51)
[2018-05-07] MEDS: XANAX PO SCH ×3 (05:28→21:03)
[2018-05-07] MEDS: BENICAR TAB 40 MG PO SCH ×2 (09:08→20:12)
[2018-05-07] MEDS: DIFLUCAN PO SCH (09:08)
[2018-05-07] MEDS: FORTAZ or TAZICEF VIAL INJ IVP SCH ×2 (09:09→20:12)
[2018-05-07] MEDS: NexIUM PO SCH ×2 (09:09→20:12)
[2018-05-07] MEDS: ASPIRIN EC 81 MG PO SCH (09:09)
[2018-05-07] MEDS: NEURONTIN CAP 300 MG PO SCH ×4 (09:09→20:12)
[2018-05-07] MEDS: CELEXA PO SCH (09:09)
[2018-05-07] MEDS: CARDIZEM SR 120 MG PO SCH (09:09)
[2018-05-07] MEDS: GENTAMICIN TOPICAL CRM TOP SCH ×2 (09:10→20:13)
[2018-05-07] MEDS: NYSTATIN POWDER TOP SCH ×2 (09:10→20:13)
[2018-05-07] MEDS: ROBITUSSIN DM PO PRN ×2 (09:28→20:17)
[2018-05-07] MEDS: BENADRYL CAP/TAB 25 MG PO PRN ×2 (09:28→20:15)
[2018-05-07] MEDS: NORCO 10/325 TAB PO PRN ×2 (10:25→20:14)
[2018-05-07 10:43] LABS: ALANINE AMINOTRANSFERASE 25 Units/L (12-78); ALBUMIN 2.8 g/dL (3.4-5.0); ALKALINE PHOSPHATASE 53 Units/L (46-116); ASPARTATE AMINO TRANSFERASE 32 Units/L (15-37); BLOOD UREA NITROGEN 5 mg/dL (7-18); CARBON DIOXIDE 32.5 mmol/L (21-32); CHLORIDE 101 mmol/L (98-107); CREATININE 0.86 mg/dL (0.55-1.02); SODIUM 137 mmol/L (136-145); TOTAL PROTEIN 6.4 g/dL (6.4-8.2); eGFR NON BLACK RACES > 60 (>60)
[2018-05-07 10:56] LABS: BASOPHILS % (AUTO) 1.2 % (0.2-1.0); EOSINOPHILS # (AUTO) 0.3 x10^3/uL (0.0-0.2); EOSINOPHILS % (AUTO) 7.2 % (0.9-2.9); HEMATOCRIT 31.3 % (36.0-47.0); HEMOGLOBIN 10.7 g/dL (12.0-16.0); LYMPHOCYTES # (AUTO) 1.3 X10^3/uL (1.3-2.9); LYMPHOCYTES % (AUTO) 33.3 % (21.0-51.0); MEAN CORPUSCULAR HEMOGLOBIN 29.5 pg (27.0-34.0); MEAN CORPUSCULAR HGB CONC 34.1 g/dL (33.0-35.0); MEAN CORPUSCULAR VOLUME 86.4 fL (80.0-100.0); MEAN PLATELET VOLUME 8.2 fL (7.4-11.0); MONOCYTES # (AUTO) 0.3 x10^3/uL (0.3-0.8); MONOCYTES % (AUTO) 8.5 % (0.0-13.0); NEUTROPHILS % (AUTO) 49.8 % (42.0-75.0); PLATELET COUNT 139 X10^3/uL (150.0-450.0); RED BLOOD COUNT 3.62 X10^6/uL (3.5-5.4); RED CELL DISTRIBUTION WIDTH 14.8 % (11.6-16.5)
[2018-05-07] MEDS: VANCOMYCIN HCL 1 GM VIAL 1 G in D5W 250 ML IV 250 ML IV SCH (16:05)
[2018-05-07] MEDS: COLACE CAP 100 MG PO SCH (20:11)
[2018-05-07] MEDS: ZOCOR TAB 10 MG PO SCH (20:13)
[2018-05-08] MEDS ORDERED: PHARMACY COMMENT IV NR (05:00)
[2018-05-08 05:07] LABS: BASOPHILS # (AUTO) 0.1 X10^3/uL (0.0-0.1); BASOPHILS % (AUTO) 2.9 % (0.2-1.0); EOSINOPHILS # (AUTO) 0.3 x10^3/uL (0.0-0.2); EOSINOPHILS % (AUTO) 7.1 % (0.9-2.9); HEMATOCRIT 32.4 % (36.0-47.0); HEMOGLOBIN 10.9 g/dL (12.0-16.0); LYMPHOCYTES # (AUTO) 1.3 X10^3/uL (1.3-2.9); MEAN CORPUSCULAR HEMOGLOBIN 29.2 pg (27.0-34.0); MEAN CORPUSCULAR HGB CONC 33.5 g/dL (33.0-35.0); MEAN CORPUSCULAR VOLUME 87.1 fL (80.0-100.0); MEAN PLATELET VOLUME 8.2 fL (7.4-11.0); MONOCYTES # (AUTO) 0.3 x10^3/uL (0.3-0.8); MONOCYTES % (AUTO) 8.7 % (0.0-13.0); NEUTROPHILS # (AUTO) 1.8 x10^3/uL (2.2-4.8); NEUTROPHILS % (AUTO) 47.3 % (42.0-75.0); PLATELET COUNT 139 X10^3/uL (150.0-450.0); RED BLOOD COUNT 3.72 X10^6/uL (3.5-5.4); RED CELL DISTRIBUTION WIDTH 14.7 % (11.6-16.5); WHITE BLOOD COUNT 3.8 X10^3/uL (3.6-10.0)
[2018-05-08 05:20] LABS: ALANINE AMINOTRANSFERASE 25 Units/L (12-78); ALBUMIN 2.8 g/dL (3.4-5.0); ALKALINE PHOSPHATASE 49 Units/L (46-116); ASPARTATE AMINO TRANSFERASE 35 Units/L (15-37); BLOOD UREA NITROGEN 5 mg/dL (7-18); CALCIUM 7.9 mg/dL (8.5-10.1); CARBON DIOXIDE 30.9 mmol/L (21-32); CHLORIDE 101 mmol/L (98-107); COR CA(FOR HYPOALB) 8.9 mg/dL (8.5-10.1); CREATININE 0.96 mg/dL (0.55-1.02); SODIUM 139 mmol/L (136-145); TOTAL PROTEIN 6.4 g/dL (6.4-8.2); eGFR NON BLACK RACES > 60 (>60)
[2018-05-08] MEDS: XANAX PO SCH (05:27)
[2018-05-08 05:59] LABS: ANISOCYTOSIS 1+; PLATELET MORPHOLOGY COMMENT NORMAL (NORMAL)
[2018-05-08 07:49] LABS: CREATININE 0.92 mg/dL (0.55-1.02); VANCOMYCIN,TROUGH 7.8 ug/mL (15-20)
[2018-05-08 07:53] VITALS: BP 138/76
[2018-05-08] MEDS ORDERED: VANCOMYCIN HCL 1 GM VIAL 1 G in D5W 250 ML IV 250 ML IV SCH (09:00)
[2018-05-08] MEDS: BENICAR TAB 40 MG PO SCH (09:29)
[2018-05-08] MEDS: ASPIRIN EC 81 MG PO SCH (09:29)
[2018-05-08] MEDS: CELEXA PO SCH (09:30)
[2018-05-08] MEDS: CARDIZEM SR 120 MG PO SCH (09:30)
[2018-05-08] MEDS: GENTAMICIN TOPICAL CRM TOP SCH (09:30)
[2018-05-08] MEDS: NEURONTIN CAP 300 MG PO SCH (09:34)
[2018-05-08] MEDS: DIFLUCAN PO SCH (09:34)
[2018-05-08] MEDS: NYSTATIN POWDER TOP SCH (09:34)
[2018-05-08] MEDS: FORTAZ or TAZICEF VIAL INJ IVP SCH (09:34)
[2018-05-08] MEDS: NexIUM PO SCH (09:34)
[2018-05-08] MEDS: BENADRYL CAP/TAB 25 MG PO PRN (09:35)
[2018-05-08] MEDS: NORCO 10/325 TAB PO PRN (09:35)
--- NOTE | 2018-06-10 20:06 | DR.UPDATE ---
H&P Update History and Physical Update: 'S H&P WAS COMPLETED ON ADMISSION DATE OF 04/24/18. SHE HAS BEEN ADMITTED TO [facility] FOR IV ANTIBIOTICS AND PHYSICAL THERAPY. NO OTHER CHANGES NOTED TO H&P. Changes noted: NO Yes with the following:
--- NOTE | 2018-06-25 05:28 | DR.CARTERD ---
- Discharge Summary for: Discharge Summary for Date of:: 05/08/18 - Admission Date Date of Admission: 05/02/18 - Admission Diagnoses Admission Diagnosis: (1) CELLULITIS (2) WEAKNESS - Discharge Date Discharge Date: 05/08/18 - Discharge Diagnoses Discharge Diagnosis: (1) CELLULITIS (2) WEAKNESS - Hospital Course Hospital Course: DAY ONE, PATIENT CONTINUED TO HAVE CELLULITIS TO THE FOLDS OF HER ABDOMEN, ALONG WITH GENERALIZED WEAKNESS SHE HAS BEEN ADMITTED TO [facility]ING [facility]ED STATUS FOR IV ANTIBIOTICS AND PHYSICAL THERAPY. WE CONTINUED WITH CURRENT ANTIBIOTIC THERAPY THAT PATIENT WAS RECEIVING INPATIENT AND WE CONTINUED TO MONITOR. DAY FOUR. DR. HERNDON WAS CONSULTED YESTERDAY FOR POSSIBLE CENTRAL LINE PLACEMENT DUE T POOR VENOUS ACCESS. MICHEAL ARCHIBALD PLACED A CENTRAL LINE TO THE LEFT CHEST WALL YESTERDAY. PATIENT TOLERATED WELL. VITAL WERE T-99.1, P-97, R-20, O2 SAT. 90%, BP-148/79. ABNORMAL LABS INCLUDED HGB 11.2, HCT 33.7, GLUCOSE 122, CALCIUM 8.2, ALBUMIN 2.8, A/G RATIO 0.8. PT AND OT CONTINUED TO WOTK WITH PATIENT. WE CONTINUED WITH CURRENT PLAN OF TREATMENT AND CONTINUED TO MONITOR PATIENT. DAY SIX, WE CONTINUED WITH CURRENT PLAN OF TREATMENT. PT AND OT CONTINUED TO WORK WITH PATIENT. VITALS WERE T-98.9, P-82, R-20, BP-163/82. ABNORMAL LABS INCLUDED HGB 10.7, HCT 31.3, PLT COUNT 139, GLUCOSE 110, CALCIUM 8.0, ALBUMIN 2.8, A/G RATIO 0.8. WE CONTIUED TO MONITOR. DAY SEVEN, CELLULITIS HAS IMPROVED AND PATIENT REPORTED FEELING STRONGER TODAY. PATIENT REQUESTING TGO BE DISCHARGED SO SHE CAN GO HOME. VITALS WERE STABLE. LABS WERE IN NORMAL RANGE FOR PATIENT. CASE MANAGEMENT HAS SET UP HOME COOKIE FOR REHAB . WE PLANNED FOR DISCHARGE. INSTRUCTIONS FOR MEDICATIONS AND FOLLOW UP WERE DISCUSSED WITH PATIENT AND FAMILY, BOTH VOICED UNDERSTANDING. PATIENT WAS DISCHARGED HOME IN STABLE CONDITION WITH FAMILY. - Discharge Medications Discharge Medications: Home Medication List diltiazem HCl 1 tab PO DAILY 05/03/18 [History] fluconazole [Diflucan] 150 mg PO DAILY #7 tab 05/07/18 [Rx] nystatin [Nyamyc] 1 applic TOP BID #1 g 05/07/18 [Rx] ipratropium-albuterol 3 ml INHALATION Q8H #50 units 05/08/18 [Rx] sulfamethoxazole-trimethoprim [Bactrim DS] 1 tab PO BID #20 tab 05/08/18 [Rx] Prescriptions: fluconazole [Diflucan] [facility] ipratropium-albuterol [facility] nystatin [Nyamyc] [facility] sulfamethoxazole-trimethoprim [Bactrim DS] [facility] Ambulatory Orders Citalopram Hydrobromide [Celexa] 20 mg PO DAILY 09/16/12 Esomeprazole Magnesium [Nexium 40MG CAP] 40 mg PO BID 09/16/12 alprazolam [Xanax] 2 mg PO TID 09/16/12 olmesartan [Benicar] 20 mg PO DAILY 09/16/12 simvastatin 10 mg PO HS 09/16/12 Promethazine HCl 25 mg PO Q6HR PRN #20 tab 02/27/15 aspirin 81 mg PO QDAY 04/24/18 gabapentin 1 cap PO QID 04/24/18 hydrocodone-acetaminophen 1 tab PO QID PRN 04/24/18 - Discharge Disposition Discharge Disposition: PATIENT TO FOLLOW UP IN OUR OFFICE IN ONE WEEK.
== END 2018-05-08 12:20 | disposition home health service (06) | DRG 949 ==
LOC: MED/SURG 14:40
PROVIDERS: ADMIT Internal Medicine; ATTEND Internal Medicine
DX: F41.1 Generalized anxiety disorder; B35.4 Tinea corporis; B95.62 Methicillin resistant Staphylococcus aureus infection as the cause of diseases classified elsewhere; R26.89 Other abnormalities of gait and mobility; L03.311 Cellulitis of abdominal wall; B35.6 Tinea cruris; R06.02 Shortness of breath; I87.2 Venous insufficiency (chronic) (peripheral); I51.7 Cardiomegaly; E78.2 Mixed hyperlipidemia; Z51.89 Encounter for other specified aftercare; L03.314 Cellulitis of groin; M51.16 Intervertebral disc disorders with radiculopathy, lumbar region
CPT/HCPCS: 36415; 71010; 71045; 80053; 80202; 82565; 83735; 84132; 85025; 87040; 97110; 97116; 97162; 97165; 97530; 97535; A4216; A4222; Q0169; J0713; J3370; J3475; J3490; J7030; J7050; J7060; J7620